=== PATIENT | female | born 1950 | race Caucasian/White ===

== ENCOUNTER 2016-06-13 10:32 | Inpatient (IN) | payer BC, OTHER ==
[2016-06-13] MEDS ORDERED: FUROSEMIDE 40 MG/4 ML INJECTABLE VIAL IVPB ONE (11:46)
[2016-06-13] MEDS ORDERED: FUROSEMIDE 40 MG/4 ML INJECTABLE VIAL ONE (12:47)
--- NOTE | 2016-06-13 13:00 | PDOC ---
History of Present Illness - General History Source: Patient Exam Limitations: No Limitations - History of Present Illness Initial Comments: 06/13/16 13:01 Patient is a 66 year old male with a significant past medical history of HTN, hypothyroidism and HLD who presents to the ED sent by PCP with worsening cough. Patient was seen at her PCPs on 06/08 for a sick visit with complaint of sinus congestion and nasal congestion and was prescribed a Z pack. Patient presented today at her PCPs office after completion of the Z pack with worsening cough. Patient reports slight SOB with exertion and worsening bilateral edema to the LE. As per PCP the patient O2 sat was 93% on RA. Patient reports 12 lb weight gain for 1 month. Patient had a venous doppler done on 06/11 negative for DVT. She denies fever or chills. PCP - Dr. Hernández <Loreto Monroy - Last Filed: 06/13/16 14:07> <Mario North - Last Filed: 06/13/16 14:34> - General Chief Complaint: Respiratory Stated Complaint: SOB, PCP SENT Time Seen by Provider: 06/13/16 11:46 Past History <Loreto Monroy - Last Filed: 06/13/16 14:07> - Past Medical History HTN: Yes Hypercholesterolemia: Yes Thyroid Disease: Yes - Psycho/Social/Smoking Cessation Hx Anxiety: No Suicidal Ideation: No Smoking History: Never smoked Substance Use Type: None <Mario North - Last Filed: 06/13/16 14:34> - Past Medical History Allergies/Adverse Reactions: Allergies Allergy/AdvReac Type Severity Reaction Status Date / Time No Known Allergies Allergy Verified 06/13/16 10:38 Review of Systems - Review of Systems Constitutional: No: Chills, Fever Respiratory: Yes: Cough, Shortness of Breath Cardiac (ROS): Yes: Chest Pain, Edema, Palpitations. No: Lightheadedness, Syncope ABD/GI: No: Nausea, Vomiting All Other Systems: Reviewed and Negative <Mario North - Last Filed: 06/13/16 14:34> *Physical Exam - Vital Signs Last Vital Signs Temp Pulse Resp BP Pulse Ox 97.6 F 77 20 157/84 95 06/13/16 10:33 06/13/16 10:33 06/13/16 10:33 06/13/16 10:33 06/13/16 10:33 - Physical Exam Comments: 06/13/16 13:02 GENERAL: The patient is awake, alert, and fully oriented, in no acute distress. HEAD: Normal with no signs of trauma. EYES: Pupils equal, round and reactive to light, extraocular movements intact, sclera anicteric, conjunctiva clear with no pallor. ENT: Ears normal, nares patent, oropharynx clear without exudates. Moist mucous membranes. NECK: Normal range of motion, supple without lymphadenopathy, JVD, or masses. LUNGS: +Bilateral crackles to mid lung field, no wheezing. Breath sounds equal. HEART: +HR irregular with occasional runs of tachycardia, normal S1 and S2 without murmur or rub. ABDOMEN: Soft/nontender/nondistended. BS wnl. No guarding or rebound. No palpable masses. No hepatosplenomegaly. EXTREMITIES: +non pitting edema bilaterally. Normal range of motion. No clubbing or cyanosis. No cords, erythema, or tenderness. NEUROLOGICAL: Cranial nerves II through XII grossly intact. Normal speech, normal gait. PSYCH: Normal mood, normal affect. SKIN: Warm, Dry, normal turgor, no rashes or lesions noted. <Loreto Monroy - Last Filed: 06/13/16 14:07> - Vital Signs Last Vital Signs Temp Pulse Resp BP Pulse Ox 97.6 F 77 20 157/84 95 06/13/16 10:33 06/13/16 10:33 06/13/16 10:33 06/13/16 10:33 06/13/16 10:33 <Mario North - Last Filed: 06/13/16 14:34> Heart Score/ECG Review #1 ECG reviewed & interpreted by me at: 13:14 General ECG Interpretation: Sinus Rhythm, Normal Rate (71), Normal Intervals ( QRS 72, QTC 371. no peaked t waves), No acute ischemic changes <Mario oNrth - Last Filed: 06/13/16 14:34> ED Treatment Course - LABORATORY CBC & Chemistry Diagram: 06/13/16 13:20 06/13/16 13:20 - RADIOLOGY Radiology Studies Ordered: 06/13/16 14:07 EXAM: RAD/CHEST PA LAT Chest: Chest pain. Possible infiltrate There are no prior studies for comparison. There is a scoliosis with convexity to the right, degenerative changes and wedging, weak inspiration, prominent heart, prominent knob and prominent srinath. There are congestive changes. There are bibasilar atelectatic and infiltrative findings with some right pleural fluid. Follow-up recommended. Reported By: Gene Patino MD 06/13/16 - Medications Given in the ED: ED Medications Discontinued Medications Generic Name Dose Route Start Last Admin Trade Name Freq PRN Reason Stop Dose Admin Furosemide 40 mg 06/13/16 11:46 06/13/16 13:00 Lasix Injection - IVPB 06/13/16 11:47 40 mg ONCE ONE Administration <Loreto Monroy - Last Filed: 06/13/16 14:07> - LABORATORY CBC & Chemistry Diagram: 06/13/16 13:20 06/13/16 13:20 - RADIOLOGY Radiology Studies Ordered: Category Date Time Status CHEST PA & LAT [RAD] Stat Radiology 06/13/16 11:46 Ordered <Mario North - Last Filed: 06/13/16 14:34> Medical Decision Making - Medical Decision Making 06/13/16 12:56 A portion of this note was documented by scribe services under my direction. I have reviewed the details of the note, within reason, and agree with the documentation with the following case summary and management plan written by me. 66-year-old female with history of hypertension and high cholesterol, sent from Dr. Hernández's office after seen by BETH Horan for further evaluation of progressive sob and edema. Was initially evaluated last week in the setting of URI symptoms of cough and chest congestion, she was treated with azithromycin and Lasix secondary to bilateral leg edema. After 5 days of the above medications, no improvements, Dopplers were performed and were negative for DVT , but the patient was sent to the ED for further evaluation of crackles in the lungs and O2 sat of 93%. No chest pain, but does have dyspnea on minimal exertion, intermittently feels palpitations particularly with exertion. Vital signs as noted. Exam as noted, intermittent irregular palpitations/tachycardia on exam, I lateral lung crackles, bilateral nonpitting edema 66-year-old female with evidence of volume overload on exam, there is a component of pulmonary edema. Question whether underlying cause is arrhythmia versus ischemia/ACS versus valvular. No DVTs on ultrasounds, no risk factors for PE. Seems less likely infectious overall, ? viral myocarditis. Labs, urinalysis ekg, cxr diuresis admission for cardiac eval/tele 06/13/16 14:10 CBC is within normal limits. Chemistries are notable for potassium of 5.8, acute renal insufficiency with creatinine of 2.8, troponin 0.08, and a chest x- ray consistent with congestive changes and pleural effusion. Patient was given Lasix previously. Will give Kayexalate, insulin, D50 for hyperkalemia. Will proceed with admission to telemetry. 06/13/16 14:33 Accepted for inpatient tele by Dr. Liu/BETH Wood <Mario North - Last Filed: 06/13/16 14:34> *DC/Admit/Observation/Transfer - Attestations Scribe Attestion: 06/13/16 13:06 Documentation prepared by GORDON Jarvis, acting as medical records analyst for Mario North MD. <Loreto Monroy - Last Filed: 06/13/16 14:07> - Discharge Dispostion Admit: Yes <Mario North - Last Filed: 06/13/16 14:34> Diagnosis at time of Disposition: Hyperkalemia, Acute renal insufficiency Pulmonary edema Qualifiers: Chronicity: acute Qualified Code(s): J81.0 - Acute pulmonary edema Arrhythmia Qualifiers: Arrhythmia type: unspecified cardiac arrhythmia Qualified Code(s): I49.9 - Cardiac arrhythmia, unspecified - Referrals Referrals: Carla Hernández MD [Primary Care Provider] -
[2016-06-13 13:40] LABS: INR 1.01 (0.82-1.09); PROTHROMBIN TIME (PATIENT) 11.1 SEC (9.98-11.88)
[2016-06-13 13:48] LABS: BASOPHIL 1.3 % (0-2.0); EOSINOPHIL 4.3 % (0-4.5); MCH 28.6 pg (25.7-33.7); MCHC 32.1 g/dl (32.0-36.0); MEAN CELL VOLUME 89.1 fl (80-96); MEAN PLT VOLUME 10.9 fl (7.5-11.1); NEUTROPHILS 70.3 % (42.8-82.8); PLATELET COUNT 252 K/MM3 (134-434); RDW 14.7 % (11.6-15.6)
[2016-06-13 13:52] LABS: ALBUMIN 3.7 g/dl (3.4-5.0); BILIRUBIN,TOTAL 0.5 mg/dL (0.2-1.0); CALCIUM 8.2 mg/dL (8.5-10.1); CREATININE 2.8 mg/dL (0.55-1.02); TOT PROT 6.4 g/dl (6.4-8.2)
[2016-06-13 13:55] LABS: TROPONIN I 0.08 ng/ml (0.00-0.05)
[2016-06-13] MEDS ORDERED: INSULIN REGULAR HUMAN 100 UNITS/ML *VIAL IVPUSH ONE ×2 (14:07→21:25)
[2016-06-13] MEDS ORDERED: SODIUM POLYSTYRENE SULFONATE 15 GM/60 ML BOTTLE PO ONE ×2 (14:07→21:24)
[2016-06-13] MEDS ORDERED: DEXTROSE 50%-WATER 50 ML VIAL IVPUSH ONE (14:07)
[2016-06-13] MEDS ORDERED: SODIUM POLYSTYRENE SULFONATE 15 GM/60 ML BOTTLE ONE (14:32)
[2016-06-13] MEDS ORDERED: DEXTROSE 50%-WATER 50 ML DISP.SYRIN ONE (14:32)
[2016-06-13] MEDS ORDERED: INSULIN REGULAR HUMAN 100 UNITS/ML *VIAL ONE (14:33)
[2016-06-13] MEDS ORDERED: ACETAMINOPHEN 325 MG TABLET (FP) PO PRN (15:42)
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
[2016-06-13 20:52] LABS: CALCIUM 8.4 mg/dL (8.5-10.1); CREATININE 2.8 mg/dL (0.55-1.02)
[2016-06-13 20:57] LABS: TROPONIN I 0.21 ng/ml (0.00-0.05)
[2016-06-13] MEDS ORDERED: DEXTROSE 50%-WATER 50 ML DISP.SYRIN IVPUSH ONE (21:26)
[2016-06-13] MEDS: HEPARIN NA (PORCINE) 5,000 UNITS/ML 1ML VIAL SQ SCH (22:04)
[2016-06-13] MEDS: ATORVASTATIN CA 10 MG TABLET (FP) PO SCH (22:04)
[2016-06-13] MEDS: DOCUSATE SODIUM 100 MG CAPSULE (FP) PO SCH (22:12)
[2016-06-14 00:40] VITALS: BMI 35.6
[2016-06-14 02:56] LABS: CALCIUM 8.3 mg/dL (8.5-10.1)
[2016-06-14] MEDS: HEPARIN NA (PORCINE) 5,000 UNITS/ML 1ML VIAL SQ SCH ×3 (05:33→21:25)
[2016-06-14] MEDS: DOCUSATE SODIUM 100 MG CAPSULE (FP) PO SCH ×3 (05:33→21:22)
[2016-06-14] MEDS: LEVOTHYROXINE NA 88 MCG TABLET (FP) PO SCH (06:33)
[2016-06-14 06:55] LABS: CALCIUM 7.9 mg/dL (8.5-10.1)
[2016-06-14 06:58] LABS: EOSINOPHIL 4.7 % (0-4.5); MCH 28.8 pg (25.7-33.7); MCHC 32.6 g/dl (32.0-36.0); MEAN CELL VOLUME 88.4 fl (80-96); MEAN PLT VOLUME 10.5 fl (7.5-11.1); NEUTROPHILS 61.5 % (42.8-82.8); PLATELET COUNT 179 K/MM3 (134-434); RDW 14.2 % (11.6-15.6); WHITE BLOOD COUNT 5.3 K/mm3 (4.0-10.0)
[2016-06-14 07:03] LABS: BILIRUBIN,TOTAL 0.4 mg/dL (0.2-1.0); CREATININE 2.9 mg/dL (0.55-1.02); PHOSPHOROUS 7.1 mg/dL (2.5-4.9); TOT PROT 5.2 g/dl (6.4-8.2); TROPONIN I 0.12 ng/ml (0.00-0.05)
[2016-06-14] MEDS ORDERED: PNEUMOC 13-VAL CONJ-DIP CRM/PF 0.5 ML DISP.SYRIN IM ONE (10:00)
[2016-06-14] MEDS ORDERED: FUROSEMIDE 40 MG/4 ML INJECTABLE VIAL IVPUSH SCH ×2 (10:00)
[2016-06-14] MEDS ORDERED: ASPIRIN 81 MG CHEWABLE TABLETS PO SCH (10:00)
[2016-06-14 10:21] LABS: URINE APPEARANCE CLOUDY; URINE BILIRUBIN NEGATIVE (NEGATIVE); URINE COLOR YELLOW; URINE GLUCOSE (UA) NEGATIVE (NEGATIVE); URINE KETONE NEGATIVE (NEGATIVE); URINE NITRITE NEGATIVE (NEGATIVE); URINE UROBILINOGEN NEGATIVE E.U./dl (0.2-1.0)
[2016-06-14 10:22] LABS: URINE BLOOD 3+ (NEGATIVE); URINE LEUK ESTERASE 3+ (NEGATIVE); URINE PROTEIN 3+ (NEGATIVE)
[2016-06-14] MEDS: RANITIDINE HCL 150 MG TABLET (FP) PO SCH (10:29)
[2016-06-14 10:31] LABS: URINE BACTERIA RARE /hpf (NONE SEEN); URINE HYALINE CAST 218 /lpf; URINE MUCUS FEW; URINE RBC 143 /hpf (0-3); URINE WBC 65 /hpf (3-5)
--- NOTE | 2016-06-14 10:45 | PN ---
Progress Note (short form) - Note Progress Note: Subjective: The patient was seen and examined at the bedside, she has just returned from CT scan. She reports feeling better but still has cough. Current Medications Generic Name Dose Route Start Last Admin Trade Name Freq PRN Reason Stop Dose Admin Acetaminophen 650 mg 06/13/16 15:42 Tylenol - PO Q6H PRN FEVER OR PAIN Aspirin 81 mg 06/14/16 10:00 06/14/16 10:29 Asa - PO 81 mg DAILY [place] Administration Atorvastatin Calcium 10 mg 06/13/16 22:00 06/13/16 22:04 Lipitor - PO 10 mg HS [place] Administration Docusate Sodium 100 mg 06/13/16 22:00 06/14/16 05:33 Colace - PO Not Given TID [place] Heparin Sodium (Porcine) 5,000 unit 06/13/16 22:00 06/14/16 05:33 Heparin - SQ 5,000 unit TID [place] Administration Levothyroxine Sodium 88 mcg 06/14/16 07:00 06/14/16 06:33 Synthroid - PO 88 mcg DAILY@0700 [place] Administration Nystatin/Triamcinolone Acetonide 1 applic 06/14/16 10:00 Mycolog Ii Cream - TP DAILY [place] Ondansetron HCl 4 mg 06/13/16 15:42 Zofran Injection IVPB Q6H PRN NAUSEA Ranitidine HCl 150 mg 06/14/16 10:00 06/14/16 10:29 Zantac - PO 150 mg DAILY [place] Administration Objective: Vital Signs Period Temp Pulse Resp BP Sys/Estrada Pulse Ox Last 24 Hr 97.9 F-98.1 F 73-78 20-22 131-154/77-82 97 Physical Exam: General: NAD, A&Ox3 Lungs: CTA bilaterally, +cough Heart: RRR, S1S2 Abd: Soft, non-tender, non-distended. Normoactive bowel sounds Ext: Warm, well-perfused, 2+ DP/PT bilaterally. 2-3+ pitting edema to b/l lower extremities Neuro: CN 2-12 intact CBCD WBC 5.3 K/mm3 (4.0-10.0) D 06/14/16 05:35 RBC 3.24 M/mm3 (3.60-5.2) L 06/14/16 05:35 Hgb 9.3 GM/dL (10.7-15.3) L D 06/14/16 05:35 Hct 28.7 % (32.4-45.2) L D 06/14/16 05:35 MCV 88.4 fl (80-96) 06/14/16 05:35 MCHC 32.6 g/dl (32.0-36.0) 06/14/16 05:35 RDW 14.2 % (11.6-15.6) 06/14/16 05:35 Plt Count 179 K/MM3 (134-434) D 06/14/16 05:35 MPV 10.5 fl (7.5-11.1) 06/14/16 05:35 CMP Sodium 146 mmol/L (136-145) H 06/14/16 05:35 Potassium 5.3 mmol/L (3.5-5.1) H 06/14/16 05:35 Chloride 114 mmol/L (98-107) H 06/14/16 05:35 Carbon Dioxide 21 mmol/L (21-32) 06/14/16 05:35 Anion Gap 11 (8-16) 06/14/16 05:35 BUN 79 mg/dL (7-18) H 06/14/16 05:35 Creatinine 2.9 mg/dL (0.55-1.02) H 06/14/16 05:35 Creat Clearance w eGFR 16.29 (>60) 06/14/16 05:35 Random Glucose 90 mg/dL (74-106) 06/14/16 05:35 Calcium 7.9 mg/dL (8.5-10.1) L 06/14/16 05:35 Total Bilirubin 0.4 mg/dL (0.2-1.0) 06/14/16 05:35 AST 16 U/L (15-37) D 06/14/16 05:35 ALT 31 U/L (12-78) D 06/14/16 05:35 Alkaline Phosphatase 79 U/L (45-117) D 06/14/16 05:35 Total Protein 5.2 g/dl (6.4-8.2) L 06/14/16 05:35 Albumin 3.0 g/dl (3.4-5.0) L 06/14/16 05:35 CARDIAC ENZYMES Creatine Kinase 111 IU/L (26-192) 06/14/16 05:35 Troponin I 0.12 ng/ml (0.00-0.05) H 06/14/16 05:35 Assessment: This is a 66 year old female with HTN, dyslipidemia, hypothyroidism who presented to the ED with worsening cough, dyspnea, and lower extremity edema with 2lb weight gain in one week. Plan: 1) : SUSI - Cr 1.09 on 02/28/16 - Cr here2.9 - Renal ultrasound with no hydronephrosis, right kidney appears borderline in size - UA with proteinurea - F/u urine electrolytes to calculate FeUrea (patient was on lasix at home) - Hold all nephrotoxic agents - F/u nephrology consult 2) Cardiology: Cough, dypnea, weight gain, lower extremity edema - Possible acute diastolic heart failure, f/u ECHO today to assess - Will hold Lasix given renal function - Continue to monitor volume status - Appreciate cardiology consult Dyslipidemia - Continue Atorvastatin 3) Pulmonary: Cough - Recently treated with Azithromycin for pneumonia - Chest CT with small bilateral pleural effusions, increased interstitial markings possibly related to congestive changes, mild bilateral platelike atelectasis. No significant consolidations or infiltrates. Mediastinal lymphadenopathy - Will need follow-up with pulmonary within 3 weeks for repeat chest CT to assess mediastinal adenopathy 4) ID: UTI - Start Ceftriaxone - F/u urine culture 5) F/E/N: - Monitor electrolytes - Hyperkalemia: trending down, continue to monitor (repeat this PM) 6) Prophylaxis: - Heparin 5,000u sq tid - OOB ambulating CODE STATUS: FULL CODE Visit type - Emergency Visit Emergency Visit: Yes ED Registration Date: 06/13/16 Care time: The patient presented to the Emergency Department on the above date and was hospitalized for further evaluation of their emergent condition. - New Patient This patient is new to me today: Yes Date on this admission: 06/14/16 - Critical Care Critical Care patient: No
--- NOTE | 2016-06-14 11:10 | CONSULT ---
Consult - text type - Consultation Consultation Note: Renal Consult for SUSI This is a 66 year old woman with PMhx of Hypertension (2 years), HLD, Hypotyrodism who presented with complaints of cough and LE swelling and found to have SUSI with BUN/Cr of 79/2.8 and K of 5.9. She reports that she never had any CKD or kidney dysfunction before. No Hx of stones or recurrent UTI. Pt is on ARB but has been on that for a while. Denies any NSIAD use. No recent Abx use. No contrast expousre. No flank pain, dysuria, hematuria or dark colored urine. No LAGUNA, Chest pain. + Non-productive cough. No Rash on skin. PMhx: as above Allergies: NKDA Family Hx: NC Social H: No T/D, social wine drinker ROS: as per HPI Home Meds: Home Medications Medication Instructions Recorded Aspirin [ASA -] 81 mg PO DAILY 06/13/16 Atorvastatin Calcium 10 mg PO HS 06/13/16 Furosemide [Lasix] 40 mg PO DAILY 06/13/16 Levothyroxine Sodium [Synthroid] 88 mcg PO DAILY 06/13/16 Losartan Potassium 100 mg PO DAILY 06/13/16 Nystatin/Triamcin 15 gm TP DAILY 06/13/16 [Nystatin-Triamcinolone Cream] Ranitidine [Zantac -] 150 mg PO DAILY 06/13/16 Vital Signs Temperature 98.1 F 06/14/16 06:00 Pulse Rate 73 06/14/16 06:00 Respiratory Rate 20 06/14/16 06:00 Blood Pressure 154/77 06/14/16 06:00 O2 Sat by Pulse Oximetry (%) 97 06/13/16 19:45 Intake & Output 06/11/16 06/12/16 06/13/16 06/14/16 23:59 23:59 23:59 23:59 Intake Total 120 Balance 120 Weight 188 lb 12.8 oz 188 lb 3.2 oz Gen: NAD, awake and alert HEENT: NC/AT, MMM, No JVD, Neck Supple CVS: RRR, No M/R Lungs: + rales left > right base Abd: soft NT/ND, Obese Ext: Trace to 1+ edema in LE, no clubbing or cyanosis : No bladder distension Neuro: AAOx3, no focal defects CBC, BMP 06/14/16 05:35 06/14/16 05:35 Laboratory Tests 06/14/16 06/14/16 06/14/16 05:35 05:35 09:00 MCV 88.4 Calcium 7.9 L Phosphorus 7.1 H Magnesium 3.0 H Albumin 3.0 L Urine pH 5.0 Ur Specific [place] 1.018 Urine Protein 3+ H Urine Blood 3+ H Urine RBC 143 Urine WBC 65 Ur Epithelial Cells Moderate Hyaline Casts 218 Current Medications Acetaminophen (Tylenol -) 650 mg PO Q6H PRN PRN Reason: FEVER OR PAIN Aspirin (Asa -) 81 mg PO DAILY [facility] Last Admin: 06/14/16 10:29 Dose: 81 mg Atorvastatin Calcium (Lipitor -) 10 mg PO HS [facility] Last Admin: 06/13/16 22:04 Dose: 10 mg Docusate Sodium (Colace -) 100 mg PO TID [facility] Last Admin: 06/14/16 05:33 Dose: Not Given Heparin Sodium (Porcine) (Heparin -) 5,000 unit SQ TID [facility] Last Admin: 06/14/16 05:33 Dose: 5,000 unit Ceftriaxone Sodium (Rocephin 1gm Ivpb (Pre-Docked)) 50 mls @ 100 mls/hr IVPB DAILY [facility] Levothyroxine Sodium (Synthroid -) 88 mcg PO DAILY@0700 [facility] Last Admin: 06/14/16 06:33 Dose: 88 mcg Nystatin/Triamcinolone Acetonide (Mycolog Ii Cream -) 1 applic TP DAILY [facility] Ondansetron HCl (Zofran Injection) 4 mg IVPB Q6H PRN PRN Reason: NAUSEA Ranitidine HCl (Zantac -) 150 mg PO DAILY [facility] Last Admin: 06/14/16 10:29 Dose: 150 mg A/P 66 year old woman with PMhx of Hypertension (2 years), HLD, Hypotyrodism who presented with complaints of cough and LE swelling and found to have SUSI with BUN/Cr of 79/2.8 and K of 5.9. #Acute Kidney Injury with signs of Volume Overload Etiology of SUSI unclear at this time Differential includes Normotensive ATN (ARB induced), Cardio-Renal syndrome, Intrinsic GN (FSGS, RPGN) Urine studies for proteinuria and FeUrea pending Renal US showed normal size kidneys w/o signs of obstruction no acute indication for dialysis at this time trend BUN/Cr Check GRAEME, ANCA, HIV, Hepatitis panel Hold ASA for now as pt may need renal biopsy #Hyperkalemia s/p kayexalate start low k diet hold ARB #Metabolic Acidosis start soidum bicarb 650mg once daily #Proteinuria UPCR penidng UA showed 3+ protein checking serologic studies #r/o CHF ECHO pending Cardiology following #Anemia Check iron profile Trend CBC #Suspected UTI/PNA on Ceftriaxone F/u cultures Thank you Will follow closely Jason Rice DO
[2016-06-14] MEDS ORDERED: CEFTRIAXONE 1 GM in DEXTROSE 5%-WATER - 50 ML IVPB SCH (11:15)
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
[2016-06-14] MEDS ORDERED: METOPROLOL SUCCINATE 25 MG TAB.SR.24H (FP) PO SCH (12:00)
[2016-06-14] MEDS: CEFTRIAXONE 50 ML IVPB SCH (12:22)
[2016-06-14] MEDS: NYSTATIN/TRIAMCINOLONE TOPICAL CREAM 15 GM TUBE TP SCH (12:22)
--- NOTE | 2016-06-14 16:14 | EKG ---
Test Reason : Blood Pressure : / mmHG Vent. Rate : 073 BPM Atrial Rate : 073 BPM P-R Int : 140 ms QRS Dur : 072 ms QT Int : 394 ms P-R-T Axes : 054 062 024 degrees QTc Int : 434 ms NORMAL SINUS RHYTHM NORMAL ECG NO PREVIOUS ECGS AVAILABLE Confirmed by WANDA ROONEY, PANTERA ([id number]) on 06/14/2016 4:14:32 PM Referred By: CHARLENE PRESCOTT Confirmed By:PANTERA MUÑOZ MD
--- NOTE | 2016-06-14 16:22 | EKG ---
Test Reason : Blood Pressure : / mmHG Vent. Rate : 125 BPM Atrial Rate : 125 BPM P-R Int : 166 ms QRS Dur : 072 ms QT Int : 302 ms P-R-T Axes : 083 069 031 degrees QTc Int : 435 ms SINUS TACHYCARDIA OTHERWISE NORMAL ECG NO PREVIOUS ECGS AVAILABLE Confirmed by PANTERA MUÑOZ MD ([id number]) on 06/14/2016 4:22:29 PM Referred By: Confirmed By:PANTERA MUÑOZ MD
[2016-06-14 16:45] LABS: COCKROFT - GAULT 23.613; CREATININE 3.2 mg/dL (0.55-1.02)
[2016-06-14] MEDS ORDERED: SODIUM POLYSTYRENE SULFONATE 15 GM/60 ML BOTTLE PO ONE ×2 (17:06→23:43)
[2016-06-14] MEDS ORDERED: hydrALAZINE HCL 50 MG TABLET (FP) PO ONE (21:00)
[2016-06-14] MEDS: ATORVASTATIN CA 10 MG TABLET (FP) PO SCH (21:25)
[2016-06-14 23:25] LABS: CALCIUM 8.1 mg/dL (8.5-10.1); COCKROFT - GAULT 24.378; CREATININE 3.1 mg/dL (0.55-1.02)
[2016-06-15 04:46] LABS: CALCIUM 7.7 mg/dL (8.5-10.1); COCKROFT - GAULT 24.378; CREATININE 3.1 mg/dL (0.55-1.02)
[2016-06-15] MEDS: DOCUSATE SODIUM 100 MG CAPSULE (FP) PO SCH ×3 (05:36→22:29)
[2016-06-15] MEDS: LEVOTHYROXINE NA 88 MCG TABLET (FP) PO SCH (06:02)
[2016-06-15] MEDS: HEPARIN NA (PORCINE) 5,000 UNITS/ML 1ML VIAL SQ SCH ×3 (06:02→22:29)
[2016-06-15 06:48] LABS: BASOPHIL 1.3 % (0-2.0); EOSINOPHIL 5.2 % (0-4.5); MCH 29.1 pg (25.7-33.7); MCHC 33.2 g/dl (32.0-36.0); MEAN CELL VOLUME 87.6 fl (80-96); MEAN PLT VOLUME 10.7 fl (7.5-11.1); NEUTROPHILS 65.2 % (42.8-82.8); PLATELET COUNT 207 K/MM3 (134-434); RDW 14.6 % (11.6-15.6); WHITE BLOOD COUNT 6.4 K/mm3 (4.0-10.0)
[2016-06-15 07:13] LABS: ALBUMIN 3.1 g/dl (3.4-5.0); BILIRUBIN,TOTAL 0.3 mg/dL (0.2-1.0); COCKROFT - GAULT 25.194; MAGNESIUM 2.9 mg/dL (1.8-2.4); PHOSPHOROUS 6.1 mg/dL (2.5-4.9); TOT PROT 5.3 g/dl (6.4-8.2)
[2016-06-15] MEDS ORDERED: guaiFENesin 200 MG/10 ML 10 ML UNIT-DOSE CUPS PO ONE (08:44)
--- NOTE | 2016-06-15 09:12 | PN ---
[id number] bedside, she reports feeling better today, but still complaints of cough. Current Medications Generic Name Dose Route Start Last Admin Trade Name Freq PRN Reason Stop Dose Admin Acetaminophen 650 mg 06/13/16 15:42 Tylenol - PO Q6H PRN FEVER OR PAIN Atorvastatin Calcium 10 mg 06/13/16 22:00 06/14/16 21:25 Lipitor - PO 10 mg HS [place] Administration Docusate Sodium 100 mg 06/13/16 22:00 06/15/16 05:36 Colace - PO Not Given TID [place] Heparin Sodium (Porcine) 5,000 unit 06/13/16 22:00 06/15/16 06:02 Heparin - SQ 5,000 unit TID [place] Administration Hydralazine HCl 50 mg 06/15/16 10:00 Apresoline - PO BID [place] Ceftriaxone Sodium 50 mls @ 100 mls/hr 06/14/16 11:15 06/14/16 12:22 Rocephin 1gm Ivpb (Pre-Docked) IVPB 100 mls/hr DAILY [place] Administration Levothyroxine Sodium 88 mcg 06/14/16 07:00 06/15/16 06:02 Synthroid - PO 88 mcg DAILY@0700 [place] Administration Nystatin/Triamcinolone Acetonide 1 applic 06/14/16 10:00 06/14/16 12:22 Mycolog Ii Cream - TP Not Given DAILY [place] Ondansetron HCl 4 mg 06/13/16 15:42 Zofran Injection IVPB Q6H PRN NAUSEA Ranitidine HCl 150 mg 06/14/16 10:00 06/14/16 10:29 Zantac - PO 150 mg DAILY [place] Administration Objective: Vital Signs Period Temp Pulse Resp BP Sys/Estrada Pulse Ox Last 24 Hr 97.8 F-99.1 F 60-80 18-20 157-170/60-91 97-97 Physical Exam: General: NAD, A&Ox3 Lungs: CTA bilaterally, +cough Heart: RRR, S1S2 Abd: Soft, non-tender, non-distended. Normoactive bowel sounds Ext: Warm, well-perfused, 2+ DP/PT bilaterally. 2-3+ pitting edema to b/l lower extremities Neuro: CN 2-12 intact CBCD WBC 6.4 K/mm3 (4.0-10.0) 06/15/16 05:35 RBC 3.30 M/mm3 (3.60-5.2) L 06/15/16 05:35 Hgb 9.6 GM/dL (10.7-15.3) L 06/15/16 05:35 Hct 28.9 % (32.4-45.2) L 06/15/16 05:35 MCV 87.6 fl (80-96) 06/15/16 05:35 MCHC 33.2 g/dl (32.0-36.0) 06/15/16 05:35 RDW 14.6 % (11.6-15.6) 06/15/16 05:35 Plt Count 207 K/MM3 (134-434) 06/15/16 05:35 MPV 10.7 fl (7.5-11.1) 06/15/16 05:35 CMP Sodium 146 mmol/L (136-145) H 06/15/16 05:35 Potassium 4.9 mmol/L (3.5-5.1) 06/15/16 05:35 Chloride 115 mmol/L (98-107) H 06/15/16 05:35 Carbon Dioxide 21 mmol/L (21-32) 06/15/16 05:35 Anion Gap 10 (8-16) 06/15/16 05:35 BUN 78 mg/dL (7-18) H 06/15/16 05:35 Creatinine 3.0 mg/dL (0.55-1.02) H 06/15/16 05:35 Creat Clearance w eGFR 15.66 (>60) 06/15/16 05:35 Random Glucose 90 mg/dL (74-106) 06/15/16 05:35 Calcium 8.0 mg/dL (8.5-10.1) L 06/15/16 05:35 Total Bilirubin 0.3 mg/dL (0.2-1.0) D 06/15/16 05:35 AST 15 U/L (15-37) 06/15/16 05:35 ALT 32 U/L (12-78) 06/15/16 05:35 Alkaline Phosphatase 76 U/L (45-117) 06/15/16 05:35 Total Protein 5.3 g/dl (6.4-8.2) L 06/15/16 05:35 Albumin 3.1 g/dl (3.4-5.0) L 06/15/16 05:35 CARDIAC ENZYMES Creatine Kinase 111 IU/L (26-192) 06/14/16 05:35 Troponin I 0.12 ng/ml (0.00-0.05) H 06/14/16 05:35 Assessment: This is a 66 year old female with HTN, dyslipidemia, hypothyroidism who presented to the ED with worsening cough, dyspnea, and lower extremity edema with 2lb weight gain in one week. Plan: 1) : SUSI - Cr 1.09 on 02/28/16 - Cr remains elevated, 3 today - Renal ultrasound with no hydronephrosis, right kidney appears borderline in size - UA with proteinurea - FeUrea (patient was on Lasix at home) 5.5, indicating pre-renal - Hold all nephrotoxic agents - F/u GRAEME, anca, HIV, hepatitis panel - Holding ASA as patient may need renal biopsy (last dose 06/14) - Appreciate nephrology consult 2) Cardiology: Cough, dypnea, weight gain, lower extremity edema - ECHO with normal LV size, function, and thickness, right ventricle is normal in size and function, mild MR, trace TR - Continue to hold Lasix given renal function - Continue to monitor volume status - Appreciate cardiology consult Dyslipidemia - Continue Atorvastatin 3) Pulmonary: Cough - Recently treated with Azithromycin for pneumonia - Chest CT with small bilateral pleural effusions, increased interstitial markings possibly related to congestive changes, mild bilateral platelike atelectasis. No significant consolidations or infiltrates. Mediastinal lymphadenopathy - Will need follow-up with pulmonary within 3 weeks for repeat chest CT to assess mediastinal adenopathy 4) ID: UTI - Start Ceftriaxone (given prior to urine culture drawn) 5) F/E/N: - Monitor electrolytes - Hyperkalemia: resolved, continue to monitor, received kayexelate yesterday 6) Prophylaxis: - Heparin 5,000u sq tid - OOB ambulating CODE STATUS: FULL CODE Visit type - Emergency Visit Emergency Visit: Yes ED Registration Date: 06/13/16 Care time: The patient presented to the Emergency Department on the above date and was hospitalized for further evaluation of their emergent condition. - New Patient This patient is new to me today: No - Critical Care Critical Care patient: No
[2016-06-15] MEDS: RANITIDINE HCL 150 MG TABLET (FP) PO SCH (10:37)
[2016-06-15] MEDS: hydrALAZINE HCL 50 MG TABLET (FP) PO SCH ×2 (10:37→22:29)
[2016-06-15] MEDS: CEFTRIAXONE 50 ML IVPB SCH (10:37)
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
[2016-06-15] MEDS: NYSTATIN/TRIAMCINOLONE TOPICAL CREAM 15 GM TUBE TP SCH (13:19)
--- NOTE | 2016-06-15 14:45 | PN ---
Progress Note (short form) - Note Progress Note: Renal Follow up for SUSI Pt seen and examined at the bedside has no acute complaints has non productive cough and sob leg swelling remains the same no N/V/D Vital Signs Temperature 98.1 F 06/15/16 10:00 Pulse Rate 68 06/15/16 10:00 Respiratory Rate 20 06/15/16 10:00 Blood Pressure 158/71 06/15/16 10:00 O2 Sat by Pulse Oximetry (%) 97 06/15/16 10:00 Intake & Output 06/12/16 06/13/16 06/14/16 06/15/16 23:59 23:59 23:59 23:59 Intake Total 120 750 370 Balance 120 750 370 Weight 188 lb 12.8 oz 188 lb 3.2 oz Gen: NAD CVS: RRR, No M/R Lungs: slight rales at lung bases Abd: soft NT/ND, Obese Ext: Trace to 1+ edema in LE, no clubbing or cyanosis CBC, BMP 06/15/16 05:35 06/15/16 05:35 Current Medications Acetaminophen (Tylenol -) 650 mg PO Q6H PRN PRN Reason: FEVER OR PAIN Atorvastatin Calcium (Lipitor -) 10 mg PO HS [facility] Last Admin: 06/14/16 21:25 Dose: 10 mg Docusate Sodium (Colace -) 100 mg PO TID [facility] Last Admin: 06/15/16 13:19 Dose: Not Given Heparin Sodium (Porcine) (Heparin -) 5,000 unit SQ TID [facility] Last Admin: 06/15/16 13:21 Dose: 5,000 unit Hydralazine HCl (Apresoline -) 50 mg PO BID [facility] Last Admin: 06/15/16 10:37 Dose: 50 mg Ceftriaxone Sodium (Rocephin 1gm Ivpb (Pre-Docked)) 50 mls @ 100 mls/hr IVPB DAILY [facility] Last Admin: 06/15/16 10:37 Dose: 100 mls/hr Levothyroxine Sodium (Synthroid -) 88 mcg PO DAILY@0700 [facility] Last Admin: 06/15/16 06:02 Dose: 88 mcg Nystatin/Triamcinolone Acetonide (Mycolog Ii Cream -) 1 applic TP DAILY [facility] Last Admin: 06/15/16 13:19 Dose: 1 applic Ondansetron HCl (Zofran Injection) 4 mg IVPB Q6H PRN PRN Reason: NAUSEA Ranitidine HCl (Zantac -) 150 mg PO DAILY [place] Last Admin: 06/15/16 10:37 Dose: 150 mg A/P 66 year old woman with PMhx of Hypertension (2 years), HLD, Hypotyrodism who presented with complaints of cough and LE swelling and found to have SUSI with BUN/Cr of 79/2.8 and K of 5.9. #Acute Kidney Injury both FeNa and FeUrea indicate a pre-renal state but with her clinical presenation must r/o GN s/p Lasix yesterday w/o improvement in renal function ECHO shoed normal heart function so will hold off further diuresis at this time Pt has less then 1g of protein per day as per UPCR UA consistently shows blood but it is also positive for LE and WBC that could be from UTI Serologic studies sent out Added C3, C4, CH50, ASO titers as per reports having a sore throat a few weeks ago no indication for dialysis at this time Dose all med for Cr Cl less then 15 Will plan for tentative renal biopsy next week Jason Rice DO
[2016-06-15] MEDS: ATORVASTATIN CA 10 MG TABLET (FP) PO SCH (22:29)
[2016-06-16] MEDS ORDERED: guaiFENesin 200 MG/10 ML 10 ML UNIT-DOSE CUPS PO ONE (00:45)
[2016-06-16] MEDS: DOCUSATE SODIUM 100 MG CAPSULE (FP) PO SCH ×3 (06:03→21:10)
[2016-06-16 06:06] LABS: SERUM IRON 62 ug/dL (27-139); TOTAL IRON BINDING CAPACITY 322 ug/dL (250-450); UIBC 260 ug/dL (118-369)
[2016-06-16] MEDS: HEPARIN NA (PORCINE) 5,000 UNITS/ML 1ML VIAL SQ SCH ×3 (06:09→21:23)
[2016-06-16] MEDS: LEVOTHYROXINE NA 88 MCG TABLET (FP) PO SCH (06:09)
[2016-06-16 07:55] LABS: BASOPHIL 1.3 % (0-2.0); EOSINOPHIL 3.4 % (0-4.5); MCH 28.8 pg (25.7-33.7); MCHC 32.6 g/dl (32.0-36.0); MEAN CELL VOLUME 88.3 fl (80-96); MEAN PLT VOLUME 10.6 fl (7.5-11.1); NEUTROPHILS 73.1 % (42.8-82.8); PLATELET COUNT 221 K/MM3 (134-434); RDW 14.5 % (11.6-15.6)
[2016-06-16 08:18] LABS: CALCIUM 7.9 mg/dL (8.5-10.1); COCKROFT - GAULT 22.797; CREATININE 3.3 mg/dL (0.55-1.02); MAGNESIUM 2.9 mg/dL (1.8-2.4)
[2016-06-16] MEDS ORDERED: PT OWN MED DRAWER 7, Y5N ONE (10:16)
[2016-06-16] MEDS: hydrALAZINE HCL 50 MG TABLET (FP) PO SCH ×2 (10:21→21:10)
[2016-06-16] MEDS: CEFTRIAXONE 50 ML IVPB SCH (10:21)
[2016-06-16] MEDS: SODIUM BICARBONATE 650 MG TABLET PO SCH (10:21)
[2016-06-16] MEDS: RANITIDINE HCL 150 MG TABLET (FP) PO SCH (10:21)
--- NOTE | 2016-06-16 10:39 | PN ---
Progress Note (short form) - Note Progress Note: Renal Follow up for SUSI Pt seen and examined at the bedside reports having persistent cough with minimal sputum production denies any CP had Nausea an vomiting x 1 this am reports good urine output Vital Signs Temperature 97.8 F 06/16/16 06:00 Pulse Rate 85 06/16/16 06:00 Respiratory Rate 20 06/16/16 06:00 Blood Pressure 149/60 06/16/16 06:00 O2 Sat by Pulse Oximetry (%) 94 L 06/15/16 21:00 Intake & Output 06/13/16 06/14/16 06/15/16 06/16/16 23:59 23:59 23:59 23:59 Intake Total 245 774 8441 200 Balance 411 005 7377 200 Weight 188 lb 12.8 oz 188 lb 3.2 oz 187 lb 6 oz Gen: NAD CVS: RRR, No M/R Lungs: slight rales at lung bases Abd: soft NT/ND, Obese Ext: Trace to 1+ edema in LE, no clubbing or cyanosis CBC, BMP 06/16/16 06:30 06/16/16 06:30 Current Medications Acetaminophen (Tylenol -) 650 mg PO Q6H PRN PRN Reason: FEVER OR PAIN Atorvastatin Calcium (Lipitor -) 10 mg PO HS [facility] Last Admin: 06/15/16 22:29 Dose: 10 mg Calcium Acetate (Phoslo -) 667 mg PO TIDCM [facility] Docusate Sodium (Colace -) 100 mg PO TID [facility] Last Admin: 06/16/16 06:03 Dose: Not Given Heparin Sodium (Porcine) (Heparin -) 5,000 unit SQ TID [facility] Last Admin: 06/16/16 06:09 Dose: 5,000 unit Hydralazine HCl (Apresoline -) 50 mg PO BID [facility] Last Admin: 06/16/16 10:21 Dose: 50 mg Ceftriaxone Sodium (Rocephin 1gm Ivpb (Pre-Docked)) 50 mls @ 100 mls/hr IVPB DAILY [facility] Last Admin: 06/16/16 10:21 Dose: 100 mls/hr Levothyroxine Sodium (Synthroid -) 88 mcg PO DAILY@0700 [facility] Last Admin: 06/16/16 06:09 Dose: 88 mcg Nystatin/Triamcinolone Acetonide (Mycolog Ii Cream -) 1 applic TP DAILY [facility] Last Admin: 06/15/16 13:19 Dose: 1 applic Ondansetron HCl (Zofran Injection) 4 mg IVPB Q6H PRN PRN Reason: NAUSEA Ranitidine HCl (Zantac -) 150 mg PO DAILY [facility] Last Admin: 06/16/16 10:21 Dose: 150 mg Sodium Bicarbonate (Sodium Bicarbonate -) 650 mg PO DAILY [facility] Last Admin: 06/16/16 10:21 Dose: 650 mg A/P 66 year old woman with PMhx of Hypertension (2 years), HLD, Hypotyrodism who presented with complaints of cough and LE swelling and found to have SUSI with BUN/Cr of 79/2.8 and K of 5.9. #Acute Kidney Injury Renal function w/o improvement Tentative Biopsy set for Saturday Check CXR today to r/o worsening effusions/congestion if no signficnat fluid can try tiral of IVF Serologic work up pended re-ordered C4, C4, CH50, ASO as it appears it was not drawn yesterday Trend BUN/Cr dose all meds for Cr Cl less then 15 start sodium bicarb and Phoslo TID with meals Jason Rice DO
[2016-06-16] MEDS: NYSTATIN/TRIAMCINOLONE TOPICAL CREAM 15 GM TUBE TP SCH (12:32)
[2016-06-16] MEDS: CALCIUM ACETATE 667 MG CAPSULE (FP) PO SCH ×2 (12:35→18:12)
--- NOTE | 2016-06-16 12:45 | PN ---
Physical Exam: SUBJECTIVE: Patient seen and examined. She is feeling nauseated, has no appetite. She cough so hard this AM she vomited. OBJECTIVE: Vital Signs Period Temp Pulse Resp BP Sys/Estrada Pulse Ox Last 24 Hr 97.6 F-98.1 F 84-88 18-20 102-168/58-77 94-94 PE Neuro: alert, awake, cn 2-12intact Pulm: CTAB, + productive harsh cough CV: s1 s2 rrr no mrg Abd: s nt nd + bs Ext: non pitting edema, warm, L ankle lesion CBCD WBC 8.0 K/mm3 (4.0-10.0) 06/16/16 06:30 RBC 3.51 M/mm3 (3.60-5.2) L 06/16/16 06:30 Hgb 10.1 GM/dL (10.7-15.3) L 06/16/16 06:30 Hct 31.0 % (32.4-45.2) L 06/16/16 06:30 MCV 88.3 fl (80-96) 06/16/16 06:30 MCHC 32.6 g/dl (32.0-36.0) 06/16/16 06:30 RDW 14.5 % (11.6-15.6) 06/16/16 06:30 Plt Count 221 K/MM3 (134-434) 06/16/16 06:30 MPV 10.6 fl (7.5-11.1) 06/16/16 06:30 CMP Sodium 144 mmol/L (136-145) 06/16/16 06:30 Potassium 4.8 mmol/L (3.5-5.1) 06/16/16 06:30 Chloride 112 mmol/L (98-107) H 06/16/16 06:30 Carbon Dioxide 20 mmol/L (21-32) L 06/16/16 06:30 Anion Gap 12 (8-16) 06/16/16 06:30 BUN 78 mg/dL (7-18) H 06/16/16 06:30 Creatinine 3.3 mg/dL (0.55-1.02) H 06/16/16 06:30 Creat Clearance w eGFR 15.66 (>60) 06/15/16 05:35 Calcium 7.9 mg/dL (8.5-10.1) L 06/16/16 06:30 Total Bilirubin 0.3 mg/dL (0.2-1.0) D 06/15/16 05:35 AST 15 U/L (15-37) 06/15/16 05:35 ALT 32 U/L (12-78) 06/15/16 05:35 Alkaline Phosphatase 76 U/L (45-117) 06/15/16 05:35 Total Protein 5.3 g/dl (6.4-8.2) L 06/15/16 05:35 Albumin 3.1 g/dl (3.4-5.0) L 06/15/16 05:35 06/14/16 06/14/16 16:00 16:00 GRAEME Screen Pending c-ANCA Pending Proteinase 3 (PR3) Pending p-ANCA Pending Atypical p-ANCA Pending Myeloperoxidase Ab Pending RPR Titer Nonreactive Hepatitis A IgM Ab Negative Hep Bs Antigen Negative Hep B Core IgM Ab Negative Hepatitis C Ab (EIA) 0.1 06/16/16 06:30 Phosphorus 6.0 H Magnesium 2.9 H Active Medications Generic Name Dose Route Start Last Admin Trade Name Freq PRN Reason Stop Dose Admin Acetaminophen 650 mg 06/13/16 15:42 Tylenol - PO Q6H PRN FEVER OR PAIN Atorvastatin Calcium 10 mg 06/13/16 22:00 06/15/16 22:29 Lipitor - PO 10 mg HS [place] Administration Calcium Acetate 667 mg 06/16/16 12:00 06/16/16 12:35 Phoslo - PO 667 mg TIDCM [place] Administration Docusate Sodium 100 mg 06/13/16 22:00 06/16/16 06:03 Colace - PO Not Given TID [place] Guaifenesin 10 ml 06/16/16 12:38 Robitussin - PO Q6H PRN COUGH Heparin Sodium (Porcine) 5,000 unit 06/13/16 22:00 06/16/16 06:09 Heparin - SQ 5,000 unit TID [place] Administration Hydralazine HCl 50 mg 06/15/16 10:00 06/16/16 10:21 Apresoline - PO 50 mg BID [place] Administration Ceftriaxone Sodium 50 mls @ 100 mls/hr 06/14/16 11:15 06/16/16 10:21 Rocephin 1gm Ivpb (Pre-Docked) IVPB 100 mls/hr DAILY [place] Administration Levothyroxine Sodium 88 mcg 06/14/16 07:00 06/16/16 06:09 Synthroid - PO 88 mcg DAILY@0700 [place] Administration Nystatin/Triamcinolone Acetonide 1 applic 06/14/16 10:00 06/16/16 12:32 Mycolog Ii Cream - TP Not Given DAILY [place] Ondansetron HCl 4 mg 06/13/16 15:42 Zofran Injection IVPB Q6H PRN NAUSEA Ranitidine HCl 150 mg 06/14/16 10:00 06/16/16 10:21 Zantac - PO 150 mg DAILY [place] Administration Sodium Bicarbonate 650 mg 06/16/16 10:00 06/16/16 10:21 Sodium Bicarbonate - PO 650 mg DAILY [place] Administration Imaging: - ECHO with normal LV size, function, and thickness, right ventricle is normal in size and function, mild MR, trace TR - Chest CT with small bilateral pleural effusions, increased interstitial markings possibly related to congestive changes, mild bilateral platelike atelectasis. No significant consolidations or infiltrates. Mediastinal lymphadenopathy Assessment: 66 year old female with HTN, dyslipidemia, hypothyroidism admitted with worsening cough, dyspnea, and lower extremity edema with 2lb weight gain in one week and SUSI and hyperkalemia, cr in 02/28/16 1.09 Plan: 1. SUSI - Renal fxn worsening - Renal biopsy for next Saturday (ASA last dose 06/14) - F/u GRAEME, anca, HIV - Start sodium bicarb daily - Start Phoslo TID with meals - Dose meds for cr cl <15 2. Proteinurea - C3 C4 CH50 - Renal work up initiated 3. Weight gain, lower extremity edema - Continue to hold Lasix given renal function 4. Dyslipidemia - Continue Atorvastatin 5. Cough - F/u CXR - Robitussin q6 prn - Recently treated with Azithromycin for pneumonia - Will need follow-up with pulmonary within 3 weeks for repeat chest CT to assess mediastinal adenopathy 6. UTI - Ceftriaxone (day 2) 7. Hypothyroid - Continue Synthroid 8. HTN - Continue Hydralazine 50mg BID - Intolerable to BB d/t bradycardia - ARB on hold 2/2 SUSI Visit type - Emergency Visit Emergency Visit: Yes ED Registration Date: 06/13/16 Care time: The patient presented to the Emergency Department on the above date and was hospitalized for further evaluation of their emergent condition. - New Patient This patient is new to me today: Yes Date on this admission: 06/16/16 - Critical Care Critical Care patient: No
[2016-06-16] MEDS: ONDANSETRON 4 MG/2 ML VIAL IVPB PRN ×2 (12:51→21:11)
[2016-06-16] MEDS: guaiFENesin 200 MG/10 ML 10 ML UNIT-DOSE CUPS PO PRN ×2 (13:06→21:11)
--- NOTE | 2016-06-16 16:59 | PN ---
Progress Note, Physician History of Present Illness: Had heart "racing overnight" No other complaints Tele with HR to 128 (?Afib vs Atch) - Current Medication List Current Medications: Active Medications Acetaminophen (Tylenol -) 650 mg PO Q6H PRN PRN Reason: FEVER OR PAIN Atorvastatin Calcium (Lipitor -) 10 mg PO HS [facility] Last Admin: 06/15/16 22:29 Dose: 10 mg Calcium Acetate (Phoslo -) 667 mg PO TIDCM [facility] Last Admin: 06/16/16 12:35 Dose: 667 mg Docusate Sodium (Colace -) 100 mg PO TID [facility] Last Admin: 06/16/16 14:36 Dose: 100 mg Guaifenesin (Robitussin -) 10 ml PO Q6H PRN PRN Reason: COUGH Last Admin: 06/16/16 13:06 Dose: 10 ml Heparin Sodium (Porcine) (Heparin -) 5,000 unit SQ TID [facility] Last Admin: 06/16/16 14:36 Dose: 5,000 unit Hydralazine HCl (Apresoline -) 50 mg PO BID [facility] Last Admin: 06/16/16 10:21 Dose: 50 mg Ceftriaxone Sodium (Rocephin 1gm Ivpb (Pre-Docked)) 50 mls @ 100 mls/hr IVPB DAILY [facility] Last Admin: 06/16/16 10:21 Dose: 100 mls/hr Levothyroxine Sodium (Synthroid -) 88 mcg PO DAILY@0700 [facility] Last Admin: 06/16/16 06:09 Dose: 88 mcg Nystatin/Triamcinolone Acetonide (Mycolog Ii Cream -) 1 applic TP DAILY [facility] Last Admin: 06/16/16 12:32 Dose: Not Given Ondansetron HCl (Zofran Injection) 4 mg IVPB Q6H PRN PRN Reason: NAUSEA Last Admin: 06/16/16 12:51 Dose: 4 mg Ranitidine HCl (Zantac -) 150 mg PO DAILY [facility] Last Admin: 06/16/16 10:21 Dose: 150 mg Sodium Bicarbonate (Sodium Bicarbonate -) 650 mg PO DAILY [facility] Last Admin: 06/16/16 10:21 Dose: 650 mg - Objective Vital Signs: Vital Signs Temperature 97.9 F 06/16/16 14:46 Pulse Rate 101 H 06/16/16 14:46 Respiratory Rate 20 06/16/16 14:46 Blood Pressure 126/57 06/16/16 14:46 O2 Sat by Pulse Oximetry (%) 94 L 06/16/16 10:00 Constitutional: Yes: No Distress, Calm Eyes: Yes: WNL HENT: Yes: WNL Neck: Yes: WNL Cardiovascular: Yes: Regular Rate and Rhythm, Murmur (Coarse breacth sounds) Respiratory: Yes: Other (Coarse breath sounds) Gastrointestinal: Yes: WNL Extremities: Yes: WNL Edema: Yes Edema: LLE: 1+, RLE: 1+ Labs: CBC, BMP 06/16/16 06:30 06/16/16 06:30 INR, PTT INR 1.01 (0.82-1.09) 06/13/16 13:20 Assessment/Plan tele: echo 06/2016: nl lv/rv, mild mr a/p: 66 year old who recently [place] home [place] with h/o HTN, HL, hypothyroidism presents with cough, LE edema. cough/low o2 sat - CT chest without significant chf and lasix has worsened cr initially so holding diuretics for now - echo unremarkable here - ce's unremarkable x3 - likely vol overload from SUSI, cont to hold diuretics - cont telemetry monitoring. HTN - holding home losartan due to susi/hyperkalemia. Tried bb but pt had leander and bp still high so stopped bb and started hydralazine 50 bid, titrate prn. HLD - con't statin SUSI - poor uop response to diuretic. - likely underlying kidney disease as etiology, renal following
[2016-06-16] MEDS: ATORVASTATIN CA 10 MG TABLET (FP) PO SCH (21:10)
[2016-06-17] MEDS ORDERED: PT OWN MED DRAWER 7, Y5N ONE ×2 (05:50→21:23)
[2016-06-17] MEDS: DOCUSATE SODIUM 100 MG CAPSULE (FP) PO SCH ×3 (06:15→21:25)
[2016-06-17] MEDS: HEPARIN NA (PORCINE) 5,000 UNITS/ML 1ML VIAL SQ SCH ×3 (06:15→21:24)
[2016-06-17] MEDS: LEVOTHYROXINE NA 88 MCG TABLET (FP) PO SCH (06:15)
[2016-06-17 07:42] LABS: BASOPHIL 1.2 % (0-2.0); EOSINOPHIL 3.6 % (0-4.5); MCH 28.6 pg (25.7-33.7); MCHC 32.1 g/dl (32.0-36.0); MEAN CELL VOLUME 89.1 fl (80-96); MEAN PLT VOLUME 10.7 fl (7.5-11.1); NEUTROPHILS 71.9 % (42.8-82.8); PLATELET COUNT 208 K/MM3 (134-434); RDW 14.7 % (11.6-15.6); WHITE BLOOD COUNT 7.6 K/mm3 (4.0-10.0)
[2016-06-17 08:12] LABS: CALCIUM 8.2 mg/dL (8.5-10.1); MAGNESIUM 2.8 mg/dL (1.8-2.4)
[2016-06-17 08:13] LABS: COCKROFT - GAULT 17.9095; CREATININE 4.2 mg/dL (0.55-1.02)
[2016-06-17] MEDS: CEFTRIAXONE 50 ML IVPB SCH (09:28)
[2016-06-17] MEDS: SODIUM BICARBONATE 650 MG TABLET PO SCH (09:29)
[2016-06-17] MEDS: CALCIUM ACETATE 667 MG CAPSULE (FP) PO SCH ×3 (09:29→18:00)
[2016-06-17] MEDS: NYSTATIN/TRIAMCINOLONE TOPICAL CREAM 15 GM TUBE TP SCH (09:29)
[2016-06-17] MEDS: RANITIDINE HCL 150 MG TABLET (FP) PO SCH (09:30)
[2016-06-17] MEDS: hydrALAZINE HCL 50 MG TABLET (FP) PO SCH ×2 (09:30→21:25)
--- NOTE | 2016-06-17 10:05 | PN ---
Progress Note, Physician History of Present Illness: No complaints past 24 hours Tele reviewed and shows atrial tach to 117 at 08:49 this AM (06/17/2016). I have printed this and placed in the chart She was asymtomatic with this episode but has been feeling occasional palpitations during her hospitalization. - Current Medication List Current Medications: Active Medications Acetaminophen (Tylenol -) 650 mg PO Q6H PRN PRN Reason: FEVER OR PAIN Atorvastatin Calcium (Lipitor -) 10 mg PO HS [facility] Last Admin: 06/16/16 21:10 Dose: 10 mg Calcium Acetate (Phoslo -) 667 mg PO TIDCM [facility] Last Admin: 06/17/16 09:29 Dose: 667 mg Docusate Sodium (Colace -) 100 mg PO TID [facility] Last Admin: 06/17/16 06:15 Dose: 100 mg Guaifenesin (Robitussin -) 10 ml PO Q6H PRN PRN Reason: COUGH Last Admin: 06/16/16 21:11 Dose: 10 ml Heparin Sodium (Porcine) (Heparin -) 5,000 unit SQ TID [facility] Last Admin: 06/17/16 06:15 Dose: 5,000 unit Hydralazine HCl (Apresoline -) 50 mg PO BID [facility] Last Admin: 06/17/16 09:30 Dose: 50 mg Ceftriaxone Sodium (Rocephin 1gm Ivpb (Pre-Docked)) 50 mls @ 100 mls/hr IVPB DAILY [facility] Last Admin: 06/17/16 09:28 Dose: 100 mls/hr Levothyroxine Sodium (Synthroid -) 88 mcg PO DAILY@0700 [facility] Last Admin: 06/17/16 06:15 Dose: 88 mcg Nystatin/Triamcinolone Acetonide (Mycolog Ii Cream -) 1 applic TP DAILY [facility] Last Admin: 06/17/16 09:29 Dose: 1 applic Ondansetron HCl (Zofran Injection) 4 mg IVPB Q6H PRN PRN Reason: NAUSEA Last Admin: 06/16/16 21:11 Dose: 4 mg Ranitidine HCl (Zantac -) 150 mg PO DAILY [facility] Last Admin: 06/17/16 09:30 Dose: 150 mg Sodium Bicarbonate (Sodium Bicarbonate -) 650 mg PO DAILY [facility] Last Admin: 06/17/16 09:29 Dose: 650 mg - Objective Vital Signs: Vital Signs Temperature 98.2 F 06/17/16 09:58 Pulse Rate 82 06/17/16 09:58 Respiratory Rate 19 06/17/16 09:58 Blood Pressure 147/65 06/17/16 09:58 O2 Sat by Pulse Oximetry (%) 94 L 06/16/16 22:00 Constitutional: Yes: No Distress, Calm Eyes: Yes: WNL HENT: Yes: WNL Neck: Yes: WNL Cardiovascular: Yes: Regular Rate and Rhythm Respiratory: Yes: WNL Gastrointestinal: Yes: Normal Bowel Sounds Musculoskeletal: Yes: WNL Extremities: Yes: WNL Edema: No Labs: CBC, BMP 06/17/16 06:15 06/17/16 06:15 INR, PTT INR 1.01 (0.82-1.09) 06/13/16 13:20 Assessment/Plan a/p: 66 year old who recently lost home in [email or web address] with h/o HTN, HL, hypothyroidism presents with cough, LE edema. cough/low o2 sat - CT chest without significant chf and lasix has worsened cr initially so holding diuretics for now - echo unremarkable here - ce's unremarkable x3 - likely vol overload from SUSI - cont telemetry monitoring. Atach this AM -Will start low dose metoprolol succinate 25 daily HTN - holding home losartan due to susi/hyperkalemia. -SUSI getting worse. Tried bb but pt had leander and bp still high so stopped bb and started hydralazine 50 bid. HLD - con't statin SUSI - poor uop response to diuretic. - likely underlying kidney disease as etiology, renal following
[2016-06-17 11:26] LABS: HIV 1 & 2 AB NEGATIVE; HIV 1 AGp24 NEGATIVE
--- NOTE | 2016-06-17 11:30 | PN ---
Progress Note (short form) - Note Progress Note: Renal Follow up for SUSI Pt seen and examined at the bedside still has cough denies any sob or chest pain no fever or chills reports some decreased urine output Vital Signs Temperature 98.2 F 06/17/16 09:58 Pulse Rate 82 06/17/16 09:58 Respiratory Rate 19 06/17/16 09:58 Blood Pressure 147/65 06/17/16 09:58 O2 Sat by Pulse Oximetry (%) 94 L 06/16/16 22:00 Intake & Output 06/14/16 06/15/16 06/16/16 06/17/16 23:59 23:59 23:59 23:59 Intake Total 750 1150 400 Balance 750 1150 400 Weight 188 lb 3.2 oz 187 lb 6 oz Gen: NAD CVS: RRR, No M/R Lungs: slight rales at lung bases Abd: soft NT/ND, Obese Ext: Trace to 1+ edema in LE, no clubbing or cyanosis CBC, BMP 06/17/16 06:15 06/17/16 06:15 Laboratory Tests 06/14/16 06/14/16 06/14/16 09:00 09:00 16:00 Calcium Phosphorus Magnesium Iron TIBC Iron Saturation Ferritin Urine Protein 3+ H Urine Blood 3+ H Ur Leukocyte Esterase 3+ H U Random Total Protein 294 H Ur Random Sodium 21 Ur Random Potassium 53.7 Ur Random Chloride 18 Ur Random Urea Nitrogn 510 Urine Creatinine 355.0 GRAEME Screen Pending c-ANCA Pending Proteinase 3 (PR3) Pending p-ANCA Pending Atypical p-ANCA Pending Myeloperoxidase Ab Pending RPR Titer Hepatitis A IgM Ab Pending Hep Bs Antigen Pending Hep B Core IgM Ab Pending Hepatitis C Ab (EIA) Pending 06/14/16 06/15/16 06/15/16 16:00 05:35 05:35 Calcium 8.0 L Phosphorus 6.1 H Magnesium 2.9 H Iron Pending TIBC Pending Iron Saturation Pending Ferritin Urine Protein Urine Blood Ur Leukocyte Esterase U Random Total Protein Ur Random Sodium Ur Random Potassium Ur Random Chloride Ur Random Urea Nitrogn Urine Creatinine GRAEME Screen c-ANCA Proteinase 3 (PR3) p-ANCA Atypical p-ANCA Myeloperoxidase Ab RPR Titer Nonreactive Hepatitis A IgM Ab Hep Bs Antigen Hep B Core IgM Ab Hepatitis C Ab (EIA) 06/15/16 06/17/16 05:35 06:15 Calcium 8.2 L Phosphorus 8.0 H D Magnesium 2.8 H Iron TIBC Iron Saturation Ferritin 21.553 Urine Protein Urine Blood Ur Leukocyte Esterase U Random Total Protein Ur Random Sodium Ur Random Potassium Ur Random Chloride Ur Random Urea Nitrogn Urine Creatinine GRAEME Screen c-ANCA Proteinase 3 (PR3) p-ANCA Atypical p-ANCA Myeloperoxidase Ab RPR Titer Hepatitis A IgM Ab Hep Bs Antigen Hep B Core IgM Ab Hepatitis C Ab (EIA) Current Medications Acetaminophen (Tylenol -) 650 mg PO Q6H PRN PRN Reason: FEVER OR PAIN Atorvastatin Calcium (Lipitor -) 10 mg PO HS [facility] Last Admin: 06/16/16 21:10 Dose: 10 mg Calcium Acetate (Phoslo -) 667 mg PO TIDCM [facility] Last Admin: 06/17/16 09:29 Dose: 667 mg Docusate Sodium (Colace -) 100 mg PO TID [facility] Last Admin: 06/17/16 06:15 Dose: 100 mg Guaifenesin (Robitussin -) 10 ml PO Q6H PRN PRN Reason: COUGH Last Admin: 06/16/16 21:11 Dose: 10 ml Heparin Sodium (Porcine) (Heparin -) 5,000 unit SQ TID [facility] Last Admin: 06/17/16 06:15 Dose: 5,000 unit Hydralazine HCl (Apresoline -) 50 mg PO BID [facility] Last Admin: 06/17/16 09:30 Dose: 50 mg Ceftriaxone Sodium (Rocephin 1gm Ivpb (Pre-Docked)) 50 mls @ 100 mls/hr IVPB DAILY [facility] Last Admin: 06/17/16 09:28 Dose: 100 mls/hr Levothyroxine Sodium (Synthroid -) 88 mcg PO DAILY@0700 [facility] Last Admin: 06/17/16 06:15 Dose: 88 mcg Metoprolol Tartrate (Lopressor -) 25 mg PO BID [facility] Nystatin/Triamcinolone Acetonide (Mycolog Ii Cream -) 1 applic TP DAILY [facility] Last Admin: 06/17/16 09:29 Dose: 1 applic Ondansetron HCl (Zofran Injection) 4 mg IVPB Q6H PRN PRN Reason: NAUSEA Last Admin: 06/16/16 21:11 Dose: 4 mg Ranitidine HCl (Zantac -) 150 mg PO DAILY [facility] Last Admin: 06/17/16 09:30 Dose: 150 mg Sodium Bicarbonate (Sodium Bicarbonate -) 650 mg PO DAILY [facility] Last Admin: 06/17/16 09:29 Dose: 650 mg A/P 66 year old woman with PMhx of Hypertension (2 years), HLD, Hypotyrodism who presented with complaints of cough and LE swelling and found to have SUSI with BUN/Cr of 79/2.8 and K of 5.9. #Acute Kidney Injury Renal function continues to worsen will need biopsy on Saturday no overt volume overload despite CXR readings showing worsening congestion PRN lasix as needed for SOB No acute indication for dialysis at this time but there is a possibility she may need it this admission GRAEME is negative remainder of serologic work up is pending Dose all meds for Cr Cl les then 15 Jason Rice DO
[2016-06-17] MEDS: guaiFENesin 200 MG/10 ML 10 ML UNIT-DOSE CUPS PO PRN ×2 (14:06→21:24)
--- NOTE | 2016-06-17 14:55 | PN ---
Physical Exam: SUBJECTIVE: Patient seen and examined. She feels phlegm stuck in her chest. Her breathing appears less labored. at bedside. Events: - Atrial tach this AM OBJECTIVE: Vital Signs Period Temp Pulse Resp BP Sys/Estrada Pulse Ox Last 24 Hr 97.4 F-98.2 F 77-95 16-19 130-147/53-69 94-94 PE Neuro: alert, awake, cn 2-12intact Pulm: L base crackles, +dry cough + nc CV: s1 s2 rrr no mrg Abd: s nt nd + bs Ext: non pitting edema +1, warm, L ankle lesion Laboratory Results - last 24 hr 06/14/16 06/17/16 06/17/16 16:00 06:15 06:15 WBC 7.6 RBC 3.28 L Hgb 9.4 L Hct 29.2 L MCV 89.1 MCHC 32.1 RDW 14.7 Plt Count 208 MPV 10.7 Neutrophils % 71.9 Lymphocytes % 15.9 Monocytes % 7.4 Eosinophils % 3.6 Basophils % 1.2 Sodium Potassium Chloride Carbon Dioxide Anion Gap BUN Creatinine Random Glucose Calcium Phosphorus Magnesium GRAEME Screen Negative HIV 1&2 Antibody Screen HIV P24 Antigen Anti-Streptolysin Scrn < 200 06/17/16 06/17/16 06:15 06:15 WBC RBC Hgb Hct MCV MCHC RDW Plt Count MPV Neutrophils % Lymphocytes % Monocytes % Eosinophils % Basophils % Sodium 144 Potassium 5.0 Chloride 111 H Carbon Dioxide 20 L Anion Gap 13 BUN 85 H Creatinine 4.2 H D Random Glucose 87 Calcium 8.2 L Phosphorus 8.0 H D Magnesium 2.8 H GRAEME Screen HIV 1&2 Antibody Screen Negative HIV P24 Antigen Negative Anti-Streptolysin Scrn Active Medications Generic Name Dose Route Start Last Admin Trade Name Freq PRN Reason Stop Dose Admin Acetaminophen 650 mg 06/13/16 15:42 Tylenol - PO Q6H PRN FEVER OR PAIN Atorvastatin Calcium 10 mg 06/13/16 22:00 06/16/16 21:10 Lipitor - PO 10 mg HS [place] Administration Calcium Acetate 667 mg 06/16/16 12:00 06/17/16 12:30 Phoslo - PO 667 mg TIDCM [place] Administration Docusate Sodium 100 mg 06/13/16 22:00 06/17/16 14:06 Colace - PO 100 mg TID [place] Administration Guaifenesin 10 ml 06/16/16 12:38 06/17/16 14:06 Robitussin - PO 10 ml Q6H PRN Administration COUGH Heparin Sodium (Porcine) 5,000 unit 06/13/16 22:00 06/17/16 14:06 Heparin - SQ 5,000 unit TID [place] Administration Hydralazine HCl 50 mg 06/15/16 10:00 06/17/16 09:30 Apresoline - PO 50 mg BID [place] Administration Ceftriaxone Sodium 50 mls @ 100 mls/hr 06/14/16 11:15 06/17/16 09:28 Rocephin 1gm Ivpb (Pre-Docked) IVPB 100 mls/hr DAILY [place] Administration Levothyroxine Sodium 88 mcg 06/14/16 07:00 06/17/16 06:15 Synthroid - PO 88 mcg DAILY@0700 [place] Administration Metoprolol Tartrate 25 mg 06/17/16 22:00 Lopressor - PO BID [place] Nystatin/Triamcinolone Acetonide 1 applic 06/14/16 10:00 06/17/16 09:29 Mycolog Ii Cream - TP 1 applic DAILY [place] Administration Ondansetron HCl 4 mg 06/13/16 15:42 06/16/16 21:11 Zofran Injection IVPB 4 mg Q6H PRN Administration NAUSEA Ranitidine HCl 150 mg 06/14/16 10:00 06/17/16 09:30 Zantac - PO 150 mg DAILY [place] Administration Sodium Bicarbonate 650 mg 06/16/16 10:00 06/17/16 09:29 Sodium Bicarbonate - PO 650 mg DAILY [place] Administration Imaging: - ECHO with normal LV size, function, and thickness, right ventricle is normal in size and function, mild MR, trace TR - Chest CT with small bilateral pleural effusions, increased interstitial markings possibly related to congestive changes, mild bilateral platelike atelectasis. No significant consolidations or infiltrates. Mediastinal lymphadenopathy Assessment: 66 year old female with HTN, dyslipidemia, hypothyroidism admitted with worsening cough, dyspnea, and lower extremity edema with 2lb weight gain in one week and SUSI and hyperkalemia, cr in 02/28/16 1.09 Plan: 1. SUSI - Renal fxn worsening - Renal biopsy for next Saturday (ASA last dose 06/14) - HIV, GRAEME negative - F/u anca - Continue sodium bicarb daily - Continue Phoslo TID with meals - May need HD this admission, for now dose meds for cr cl <15 2. Atrial Tach - Re trial low dose metoprolol 25mg BID - Monitor HR, was bradycardic in past 3. Cough - CXR w/ worsening pleural changes - Will give x1 dose Lasix 80mg - Robitussin q6 prn - Recently treated with Azithromycin for pneumonia - Will need follow-up with pulmonary within 3 weeks for repeat chest CT to assess mediastinal adenopathy 4. HTN - Continue Hydralazine 50mg BID - ARB on hold / SUSI 5. Proteinurea - C3 C4 CH50 - Renal work up initiated 6. UTI - Ceftriaxone (day 4) 7. Weight gain, lower extremity edema - Renal work up in progress 8. Dyslipidemia - Continue Atorvastatin 9. Hypothyroid - Continue Synthroid Visit type - Emergency Visit Emergency Visit: Yes ED Registration Date: 06/13/16 Care time: The patient presented to the Emergency Department on the above date and was hospitalized for further evaluation of their emergent condition. - New Patient This patient is new to me today: No - Critical Care Critical Care patient: No
[2016-06-17] MEDS ORDERED: FUROSEMIDE 40 MG/4 ML INJECTABLE VIAL IVPUSH ONE (18:00)
[2016-06-17] MEDS: ONDANSETRON 4 MG/2 ML VIAL IVPB PRN (18:07)
[2016-06-17] MEDS: guaiFENesin 600 MG TABLET.ER (FP) PO SCH (21:25)
[2016-06-17] MEDS: METOPROLOL TARTRATE 25 MG TABLET (FP) PO SCH (21:25)
[2016-06-17] MEDS: ATORVASTATIN CA 10 MG TABLET (FP) PO SCH (21:25)
[2016-06-18] MEDS: HEPARIN NA (PORCINE) 5,000 UNITS/ML 1ML VIAL SQ SCH ×3 (05:38→21:04)
[2016-06-18] MEDS: DOCUSATE SODIUM 100 MG CAPSULE (FP) PO SCH ×3 (05:39→21:05)
[2016-06-18] MEDS: LEVOTHYROXINE NA 88 MCG TABLET (FP) PO SCH (06:11)
[2016-06-18 07:20] LABS: BASOPHIL 1.1 % (0-2.0); EOSINOPHIL 5.4 % (0-4.5); MCH 28.6 pg (25.7-33.7); MCHC 32.1 g/dl (32.0-36.0); MEAN CELL VOLUME 89.1 fl (80-96); MEAN PLT VOLUME 11.4 fl (7.5-11.1); NEUTROPHILS 61.6 % (42.8-82.8); PLATELET COUNT 189 K/MM3 (134-434); WHITE BLOOD COUNT 5.6 K/mm3 (4.0-10.0)
[2016-06-18 07:53] LABS: ALBUMIN 2.9 g/dl (3.4-5.0); BILIRUBIN,TOTAL 0.3 mg/dL (0.2-1.0); CALCIUM 8.2 mg/dL (8.5-10.1); COCKROFT - GAULT 17.1785; CREATININE 4.5 mg/dL (0.55-1.02); MAGNESIUM 2.8 mg/dL (1.8-2.4); PHOSPHOROUS 8.1 mg/dL (2.5-4.9); TOT PROT 5.3 g/dl (6.4-8.2)
[2016-06-18] MEDS: CALCIUM ACETATE 667 MG CAPSULE (FP) PO SCH ×3 (09:00→18:17)
[2016-06-18] MEDS: METOPROLOL TARTRATE 25 MG TABLET (FP) PO SCH ×2 (09:00→21:05)
[2016-06-18] MEDS: hydrALAZINE HCL 50 MG TABLET (FP) PO SCH ×2 (09:00→21:05)
[2016-06-18] MEDS: CEFTRIAXONE 50 ML IVPB SCH (09:01)
[2016-06-18] MEDS: guaiFENesin 600 MG TABLET.ER (FP) PO SCH ×2 (09:01→21:05)
[2016-06-18] MEDS: RANITIDINE HCL 150 MG TABLET (FP) PO SCH (09:01)
[2016-06-18] MEDS: NYSTATIN/TRIAMCINOLONE TOPICAL CREAM 15 GM TUBE TP SCH (09:01)
[2016-06-18] MEDS: SODIUM BICARBONATE 650 MG TABLET PO SCH (09:01)
--- NOTE | 2016-06-18 11:41 | PN ---
Progress Note (short form) - Note Progress Note: Renal Follow up for SUSI Pt seen and examined at the bedside reports that sob is better able to lay flat in bed w/o orthopnea cough persists, minimal production Vital Signs Temperature 98.2 F 06/18/16 10:00 Pulse Rate 69 06/18/16 10:00 Respiratory Rate 20 06/18/16 10:00 Blood Pressure 110/58 06/18/16 10:00 O2 Sat by Pulse Oximetry (%) 94 L 06/17/16 21:00 Intake & Output 06/15/16 06/16/16 06/17/16 06/18/16 23:59 23:59 23:59 23:59 Intake Total 1150 400 750 Output Total 100 300 Balance 1150 400 650 -300 Weight 187 lb 6 oz 192 lb 8 oz Gen: NAD CVS: RRR, No M/R Lungs: slight rales at lung bases Abd: soft NT/ND, Obese Ext: Trace to 1+ edema in LE, no clubbing or cyanosis CBC, BMP 06/18/16 05:40 06/18/16 05:40 Laboratory Tests 06/14/16 06/14/16 06/17/16 16:00 16:00 06:15 MCV Phosphorus Magnesium Albumin GRAEME Screen Negative RPR Titer Nonreactive Hepatitis A IgM Ab Negative Hep Bs Antigen Negative Hep B Core IgM Ab Negative Hepatitis C Ab (EIA) 0.1 HIV 1&2 Antibody Screen HIV P24 Antigen Anti-Streptolysin Scrn < 200 06/17/16 06/18/16 06/18/16 06:15 05:40 05:40 MCV 89.1 Phosphorus 8.1 H Magnesium 2.8 H Albumin 2.9 L GRAEME Screen RPR Titer Hepatitis A IgM Ab Hep Bs Antigen Hep B Core IgM Ab Hepatitis C Ab (EIA) HIV 1&2 Antibody Screen Negative HIV P24 Antigen Negative Anti-Streptolysin Scrn Current Medications Acetaminophen (Tylenol -) 650 mg PO Q6H PRN PRN Reason: FEVER OR PAIN Atorvastatin Calcium (Lipitor -) 10 mg PO HS [place] Last Admin: 06/17/16 21:25 Dose: 10 mg Calcium Acetate (Phoslo -) 1,334 mg PO TIDCM [place] Docusate Sodium (Colace -) 100 mg PO TID [place] Last Admin: 06/18/16 05:39 Dose: 100 mg Guaifenesin (Robitussin -) 10 ml PO Q6H PRN PRN Reason: COUGH Last Admin: 06/17/16 21:24 Dose: 10 ml Guaifenesin (Mucinex -) 600 mg PO BID [facility] Stop: 06/19/16 21:59 Last Admin: 06/18/16 09:01 Dose: 600 mg Heparin Sodium (Porcine) (Heparin -) 5,000 unit SQ TID [facility] Last Admin: 06/18/16 05:38 Dose: 5,000 unit Hydralazine HCl (Apresoline -) 50 mg PO BID [facility] Last Admin: 06/18/16 09:00 Dose: 50 mg Ceftriaxone Sodium (Rocephin 1gm Ivpb (Pre-Docked)) 50 mls @ 100 mls/hr IVPB DAILY [facility] Last Admin: 06/18/16 09:01 Dose: 100 mls/hr Levothyroxine Sodium (Synthroid -) 88 mcg PO DAILY@0700 [facility] Last Admin: 06/18/16 06:11 Dose: 88 mcg Metoprolol Tartrate (Lopressor -) 25 mg PO BID [facility] Last Admin: 06/18/16 09:00 Dose: 25 mg Nystatin/Triamcinolone Acetonide (Mycolog Ii Cream -) 1 applic TP DAILY [facility] Last Admin: 06/18/16 09:01 Dose: 1 applic Ondansetron HCl (Zofran Injection) 4 mg IVPB Q6H PRN PRN Reason: NAUSEA Last Admin: 06/17/16 18:07 Dose: 4 mg Ranitidine HCl (Zantac -) 150 mg PO DAILY [facility] Last Admin: 06/18/16 09:01 Dose: 150 mg Sodium Bicarbonate (Sodium Bicarbonate -) 650 mg PO DAILY [facility] Last Admin: 06/18/16 09:01 Dose: 650 mg A/P 66 year old woman with PMhx of Hypertension (2 years), HLD, Hypotyrodism who presented with complaints of cough and LE swelling and found to have SUSI with BUN/Cr of 79/2.8 and K of 5.9. #Acute Kidney Injury Renal function w/o improvement at this time ? oliguric urine output strict I and O HIV, Hepatitis, GRAEME, ASO all negative ANCAs pending for Biopsy on Saturday PRN Lasix for SOB May need short term HD if renal function worsens and if pt develops uremic symptoms or electrolyte imbalance Jason Rice DO
[2016-06-18] MEDS: ONDANSETRON 4 MG/2 ML VIAL IVPB PRN (13:10)
--- NOTE | 2016-06-18 15:08 | PN ---
Physical Exam: SUBJECTIVE: Patient seen and examined. She said she was feeling well this morning and now she feels sick again, specifically nauseated. Her cough persists. She did not urinate much overnight, but did this morning. OBJECTIVE: Vital Signs Period Temp Pulse Resp BP Sys/Estrada Pulse Ox Last 24 Hr 97.6 F-98.3 F 63-88 20-20 110-145/47-79 94-95 PE Neuro: alert, awake, cn 2-12intact Pulm: L base crackles, +dry cough + nc CV: s1 s2 rrr no mrg Abd: s nt nd + bs Ext: non pitting edema +1, warm, L ankle lesion Laboratory Results - last 24 hr 06/18/16 06/18/16 05:40 05:40 WBC 5.6 RBC 3.12 L Hgb 8.9 L Hct 27.8 L MCV 89.1 MCHC 32.1 RDW 15.0 Plt Count 189 MPV 11.4 H Neutrophils % 61.6 Lymphocytes % 23.1 D Monocytes % 8.8 Eosinophils % 5.4 H Basophils % 1.1 Sodium 141 Potassium 5.2 H Chloride 107 Carbon Dioxide 23 Anion Gap 11 BUN 87 H Creatinine 4.5 H Creat Clearance w eGFR 9.81 Random Glucose 81 Calcium 8.2 L Phosphorus 8.1 H Magnesium 2.8 H Total Bilirubin 0.3 AST 31 D ALT 37 Alkaline Phosphatase 76 Total Protein 5.3 L Albumin 2.9 L Active Medications Generic Name Dose Route Start Last Admin Trade Name Freq PRN Reason Stop Dose Admin Acetaminophen 650 mg 06/13/16 15:42 Tylenol - PO Q6H PRN FEVER OR PAIN Atorvastatin Calcium 10 mg 06/13/16 22:00 06/17/16 21:25 Lipitor - PO 10 mg HS [place] Administration Calcium Acetate 1,334 mg 06/18/16 12:00 06/18/16 13:03 Phoslo - PO 1,334 mg TIDCM [place] Administration Docusate Sodium 100 mg 06/13/16 22:00 06/18/16 13:03 Colace - PO 100 mg TID [place] Administration Guaifenesin 10 ml 06/16/16 12:38 06/17/16 21:24 Robitussin - PO 10 ml Q6H PRN Administration COUGH Guaifenesin 600 mg 06/17/16 22:00 06/18/16 09:01 Mucinex - PO 06/19/16 21:59 600 mg BID [place] Administration Heparin Sodium (Porcine) 5,000 unit 06/13/16 22:00 06/18/16 13:03 Heparin - SQ 5,000 unit TID [place] Administration Hydralazine HCl 50 mg 06/15/16 10:00 06/18/16 09:00 Apresoline - PO 50 mg BID [place] Administration Ceftriaxone Sodium 50 mls @ 100 mls/hr 06/14/16 11:15 06/18/16 09:01 Rocephin 1gm Ivpb (Pre-Docked) IVPB 100 mls/hr DAILY [place] Administration Levothyroxine Sodium 88 mcg 06/14/16 07:00 06/18/16 06:11 Synthroid - PO 88 mcg DAILY@0700 [place] Administration Metoprolol Tartrate 25 mg 06/17/16 22:00 06/18/16 09:00 Lopressor - PO 25 mg BID [place] Administration Nystatin/Triamcinolone Acetonide 1 applic 06/14/16 10:00 06/18/16 09:01 Mycolog Ii Cream - TP 1 applic DAILY [place] Administration Ondansetron HCl 4 mg 06/13/16 15:42 06/18/16 13:10 Zofran Injection IVPB 4 mg Q6H PRN Administration NAUSEA Ranitidine HCl 150 mg 06/14/16 10:00 06/18/16 09:01 Zantac - PO 150 mg DAILY [place] Administration Sodium Bicarbonate 650 mg 06/16/16 10:00 06/18/16 09:01 Sodium Bicarbonate - PO 650 mg DAILY [place] Administration Imaging: - ECHO with normal LV size, function, and thickness, right ventricle is normal in size and function, mild MR, trace TR - Chest CT with small bilateral pleural effusions, increased interstitial markings possibly related to congestive changes, mild bilateral platelike atelectasis. No significant consolidations or infiltrates. Mediastinal lymphadenopathy Assessment: 66 year old female with HTN, dyslipidemia, hypothyroidism admitted with worsening cough, dyspnea, and lower extremity edema with 2lb weight gain in one week and SUSI and hyperkalemia, cr in 02/28/16 1.09 Plan: 1. SUSI - Renal fxn worsening - Renal biopsy Saturday (ASA last dose 06/14) - HIV, GRAEME, Hepatitis, GRAEME, ASO negative - F/u anca - Continue sodium bicarb daily - Continue Phoslo TID with meals - May need HD this admission, for now dose meds for cr cl <15 - Mild Hyperkalemia; if worsens tomorrow will give cocktail 2. Atrial Tach - Low dose metoprolol 25mg BID - HR and BP stable thus far 3. Persistent cough, ?bronchitis - s/p IV lasix 80mg yesterday - CXR tomorrow - Robitussin q6 prn - Recently treated with Azithromycin for pneumonia - Will need follow-up with pulmonary within 3 weeks for repeat chest CT to assess mediastinal adenopathy 4. HTN - Continue Hydralazine 50mg BID - ARB on hold 2/ SUSI 5. Proteinurea - C3 C4 CH50 - Renal work up initiated 6. UTI - Ceftriaxone (day 5) 7. Weight gain, lower extremity edema - Renal work up in progress 8. Dyslipidemia - Continue Atorvastatin 9. Hypothyroid - Continue Synthroid Visit type - Emergency Visit Emergency Visit: Yes ED Registration Date: 06/13/16 Care time: The patient presented to the Emergency Department on the above date and was hospitalized for further evaluation of their emergent condition. - New Patient This patient is new to me today: No - Critical Care Critical Care patient: No
--- NOTE | 2016-06-18 19:45 | PN ---
Progress Note (short form) - Note Progress Note: S: sob sob and cough le edema improving. + swelling in hands. no cp, palps, dizziness Current Medications Acetaminophen (Tylenol -) 650 mg PO Q6H PRN PRN Reason: FEVER OR PAIN Atorvastatin Calcium (Lipitor -) 10 mg PO HS [facility] Last Admin: 06/17/16 21:25 Dose: 10 mg Calcium Acetate (Phoslo -) 1,334 mg PO TIDCM [facility] Last Admin: 06/18/16 18:17 Dose: 1,334 mg Docusate Sodium (Colace -) 100 mg PO TID [facility] Last Admin: 06/18/16 13:03 Dose: 100 mg Guaifenesin (Robitussin -) 10 ml PO Q6H PRN PRN Reason: COUGH Last Admin: 06/17/16 21:24 Dose: 10 ml Guaifenesin (Mucinex -) 600 mg PO BID [facility] Stop: 06/19/16 21:59 Last Admin: 06/18/16 09:01 Dose: 600 mg Heparin Sodium (Porcine) (Heparin -) 5,000 unit SQ TID [facility] Last Admin: 06/18/16 13:03 Dose: 5,000 unit Hydralazine HCl (Apresoline -) 50 mg PO BID [facility] Last Admin: 06/18/16 09:00 Dose: 50 mg Ceftriaxone Sodium (Rocephin 1gm Ivpb (Pre-Docked)) 50 mls @ 100 mls/hr IVPB DAILY [facility] Last Admin: 06/18/16 09:01 Dose: 100 mls/hr Levothyroxine Sodium (Synthroid -) 88 mcg PO DAILY@0700 [facility] Last Admin: 06/18/16 06:11 Dose: 88 mcg Metoprolol Tartrate (Lopressor -) 25 mg PO BID [facility] Last Admin: 06/18/16 09:00 Dose: 25 mg Nystatin/Triamcinolone Acetonide (Mycolog Ii Cream -) 1 applic TP DAILY [facility] Last Admin: 06/18/16 09:01 Dose: 1 applic Ondansetron HCl (Zofran Injection) 4 mg IVPB Q6H PRN PRN Reason: NAUSEA Last Admin: 06/18/16 13:10 Dose: 4 mg Ranitidine HCl (Zantac -) 150 mg PO DAILY [facility] Last Admin: 06/18/16 09:01 Dose: 150 mg Sodium Bicarbonate (Sodium Bicarbonate -) 650 mg PO DAILY [facility] Last Admin: 06/18/16 09:01 Dose: 650 mg Vital Signs - 24 hr 06/17/16 06/17/16 06/18/16 21:00 22:00 02:00 Temperature 97.6 F 98.1 F Pulse Rate 81 63 Respiratory 20 20 20 Rate Blood Pressure 145/79 118/53 O2 Sat by Pulse 94 L Oximetry (%) 06/18/16 06/18/16 06/18/16 06:00 09:00 10:00 Temperature 98.2 F 98.2 F Pulse Rate 64 69 Respiratory 20 20 Rate Blood Pressure 114/47 110/58 O2 Sat by Pulse 95 Oximetry (%) 06/18/16 06/18/16 14:00 18:38 Temperature 98.3 F 98.6 F Pulse Rate 72 71 Respiratory 20 18 Rate Blood Pressure 120/50 138/64 O2 Sat by Pulse Oximetry (%) Intake & Output 06/16/16 06/17/16 06/18/16 06/19/16 07:59 07:59 07:59 07:59 Intake Total 1350 200 750 50 Output Total 400 Balance 1350 200 350 50 Weight 187 lb 6 oz 192 lb 8 oz Constitutional: Yes: No Distress, Calm Eyes: Yes: WNL HENT: Yes: WNL Neck: Yes: WNL Cardiovascular: Yes: Regular Rate and Rhythm Respiratory: Yes: WNL Gastrointestinal: Yes: Normal Bowel Sounds Musculoskeletal: Yes: WNL Extremities: Yes: WNL Edema: trace Labs: CBC, BMP 06/18/16 05:40 06/18/16 05:40 tele sr, sb. Assessment/Plan a/p: 66 year old who recently lost home in [place] with h/o HTN, HL, hypothyroidism presents with cough, LE edema. cough/low o2 sat - CT chest without significant chf and lasix has worsened cr initially so holding diuretics for now - echo unremarkable here - ce's unremarkable x3 - likely vol overload from SUSI - cont telemetry monitoring. Atach -started low dose metoprolol. will decrease dose today HTN - holding home losartan due to susi/hyperkalemia. controlled on current regimen. HLD - con't statin SUSI - poor uop response to diuretic. - likely underlying kidney disease as etiology, renal following
[2016-06-18] MEDS: guaiFENesin 200 MG/10 ML 10 ML UNIT-DOSE CUPS PO PRN (21:04)
[2016-06-18] MEDS: ATORVASTATIN CA 10 MG TABLET (FP) PO SCH (21:05)
[2016-06-19 00:06] LABS: COMPLEMENT C3 81 mg/dL (82-167); COMPLEMENT C4 21 mg/dL (14-44)
[2016-06-19] MEDS: HEPARIN NA (PORCINE) 5,000 UNITS/ML 1ML VIAL SQ SCH (05:44)
[2016-06-19] MEDS: DOCUSATE SODIUM 100 MG CAPSULE (FP) PO SCH ×3 (05:44→21:03)
[2016-06-19] MEDS: LEVOTHYROXINE NA 88 MCG TABLET (FP) PO SCH (06:17)
[2016-06-19 07:18] LABS: BASOPHIL 1.2 % (0-2.0); EOSINOPHIL 4.6 % (0-4.5); MCH 28.3 pg (25.7-33.7); MCHC 31.6 g/dl (32.0-36.0); MEAN CELL VOLUME 89.3 fl (80-96); MEAN PLT VOLUME 10.9 fl (7.5-11.1); NEUTROPHILS 68.3 % (42.8-82.8); PLATELET COUNT 176 K/MM3 (134-434); RDW 14.9 % (11.6-15.6); WHITE BLOOD COUNT 6.2 K/mm3 (4.0-10.0)
[2016-06-19 07:31] LABS: BILIRUBIN,TOTAL 0.4 mg/dL (0.2-1.0); CALCIUM 8.4 mg/dL (8.5-10.1); COCKROFT - GAULT 19.89; CREATININE 3.9 mg/dL (0.55-1.02); MAGNESIUM 2.8 mg/dL (1.8-2.4)
[2016-06-19 07:32] LABS: TOT PROT 5.3 g/dl (6.4-8.2)
[2016-06-19] MEDS: CALCIUM ACETATE 667 MG CAPSULE (FP) PO SCH ×3 (08:37→17:55)
[2016-06-19] MEDS: RANITIDINE HCL 150 MG TABLET (FP) PO SCH (09:38)
[2016-06-19] MEDS: METOPROLOL SUCCINATE 25 MG TAB.SR.24H (FP) PO SCH (09:38)
[2016-06-19] MEDS: guaiFENesin 600 MG TABLET.ER (FP) PO SCH (09:38)
[2016-06-19] MEDS: SODIUM BICARBONATE 650 MG TABLET PO SCH (09:38)
[2016-06-19] MEDS: CEFTRIAXONE 50 ML IVPB SCH (09:38)
[2016-06-19] MEDS: hydrALAZINE HCL 50 MG TABLET (FP) PO SCH ×2 (09:38→21:03)
[2016-06-19] MEDS: NYSTATIN/TRIAMCINOLONE TOPICAL CREAM 15 GM TUBE TP SCH (09:39)
--- NOTE | 2016-06-19 11:20 | PN ---
Progress Note (short form) - Note Progress Note: S: sob sob and cough le edema improving. + swelling in hands. no cp, palps, dizziness Current Medications Acetaminophen (Tylenol -) 650 mg PO Q6H PRN PRN Reason: FEVER OR PAIN Atorvastatin Calcium (Lipitor -) 10 mg PO HS [facility] Last Admin: 06/18/16 21:05 Dose: 10 mg Calcium Acetate (Phoslo -) 1,334 mg PO TIDCM [facility] Last Admin: 06/19/16 08:37 Dose: 1,334 mg Docusate Sodium (Colace -) 100 mg PO TID [facility] Last Admin: 06/19/16 05:44 Dose: 100 mg Guaifenesin (Robitussin -) 10 ml PO Q6H PRN PRN Reason: COUGH Last Admin: 06/18/16 21:04 Dose: 10 ml Guaifenesin (Mucinex -) 600 mg PO BID [facility] Stop: 06/19/16 21:59 Last Admin: 06/19/16 09:38 Dose: 600 mg Heparin Sodium (Porcine) (Heparin -) 5,000 unit SQ TID [facility] Last Admin: 06/19/16 05:44 Dose: 5,000 unit Hydralazine HCl (Apresoline -) 50 mg PO BID [facility] Last Admin: 06/19/16 09:38 Dose: 50 mg Ceftriaxone Sodium (Rocephin 1gm Ivpb (Pre-Docked)) 50 mls @ 100 mls/hr IVPB DAILY [facility] Last Admin: 06/19/16 09:38 Dose: 100 mls/hr Levothyroxine Sodium (Synthroid -) 88 mcg PO DAILY@0700 [facility] Last Admin: 06/19/16 06:17 Dose: 88 mcg Metoprolol Succinate (Toprol Xl -) 25 mg PO DAILY [facility] Last Admin: 06/19/16 09:38 Dose: 25 mg Nystatin/Triamcinolone Acetonide (Mycolog Ii Cream -) 1 applic TP DAILY [facility] Last Admin: 06/19/16 09:39 Dose: 1 applic Ondansetron HCl (Zofran Injection) 4 mg IVPB Q6H PRN PRN Reason: NAUSEA Last Admin: 06/18/16 13:10 Dose: 4 mg Ranitidine HCl (Zantac -) 150 mg PO DAILY [facility] Last Admin: 06/19/16 09:38 Dose: 150 mg Sodium Bicarbonate (Sodium Bicarbonate -) 650 mg PO DAILY [place] Last Admin: 06/19/16 09:38 Dose: 650 mg Vital Signs - 24 hr 06/18/16 06/18/16 06/18/16 14:00 18:38 21:00 Temperature 98.3 F 98.6 F Pulse Rate 72 71 Respiratory 20 18 18 Rate Blood Pressure 120/50 138/64 O2 Sat by Pulse 96 Oximetry (%) 06/18/16 06/19/16 06/19/16 21:40 01:53 05:58 Temperature 98.6 F 97.6 F 97.8 F Pulse Rate 72 64 61 Respiratory 18 18 18 Rate Blood Pressure 154/75 106/50 117/45 O2 Sat by Pulse Oximetry (%) Intake & Output 06/17/16 06/18/16 06/19/16 06/20/16 07:59 07:59 07:59 07:59 Intake Total 200 750 450 Output Total 400 Balance 200 350 450 Weight 192 lb 8 oz 193 lb 8 oz Constitutional: Yes: No Distress, Calm Eyes: Yes: WNL HENT: Yes: WNL Neck: Yes: WNL Cardiovascular: Yes: Regular Rate and Rhythm Respiratory: Yes: WNL Gastrointestinal: Yes: Normal Bowel Sounds Musculoskeletal: Yes: WNL Extremities: Yes: WNL Edema: trace Labs: CBC, BMP 06/19/16 05:35 06/19/16 05:35 tele sr, sb. Assessment/Plan a/p: 66 year old who recently lost home in [place] with h/o HTN, HL, hypothyroidism presents with cough, LE edema. cough/low o2 sat - CT chest without significant chf and lasix has worsened cr initially so holding diuretics for now - echo unremarkable here - ce's unremarkable x3 - likely vol overload from SUSI - cont telemetry monitoring. Atach -started low dose metoprolol. will decrease dose today HTN - holding home losartan due to susi/hyperkalemia. controlled on current regimen. HLD - con't statin SUSI - poor uop response to diuretic. - likely underlying kidney disease as etiology, renal following
[2016-06-19] MEDS ORDERED: FUROSEMIDE 40 MG/4 ML INJECTABLE VIAL IVPUSH ONE (12:02)
--- NOTE | 2016-06-19 12:05 | PN ---
Progress Note (short form) - Note Progress Note: Renal Follow up for SUSI Pt seen and examined at the bedside cough is improved reports more swelling in LE and feet could not lay down flat today no chest pain reports improved urine output Vital Signs Temperature 98.7 F 06/19/16 10:00 Pulse Rate 70 06/19/16 10:00 Respiratory Rate 18 06/19/16 10:00 Blood Pressure 156/69 06/19/16 10:00 O2 Sat by Pulse Oximetry (%) 96 06/19/16 10:00 Intake & Output 06/16/16 06/17/16 06/18/16 06/19/16 23:59 23:59 23:59 23:59 Intake Total 400 750 250 200 Output Total 100 300 Balance 400 650 -50 200 Weight 187 lb 6 oz 192 lb 8 oz 193 lb 8 oz Gen: NAD CVS: RRR, No M/R Lungs: slight rales at lung bases Abd: soft NT/ND, Obese Ext: Trace to 1+ edema in LE, no clubbing or cyanosis CBC, BMP 06/19/16 05:35 06/19/16 05:35 Laboratory Tests 06/19/16 05:35 Magnesium 2.8 H Albumin 3.0 L Current Medications Acetaminophen (Tylenol -) 650 mg PO Q6H PRN PRN Reason: FEVER OR PAIN Atorvastatin Calcium (Lipitor -) 10 mg PO HS [facility] Last Admin: 06/18/16 21:05 Dose: 10 mg Calcium Acetate (Phoslo -) 1,334 mg PO TIDCM [facility] Last Admin: 06/19/16 08:37 Dose: 1,334 mg Docusate Sodium (Colace -) 100 mg PO TID [facility] Last Admin: 06/19/16 05:44 Dose: 100 mg Furosemide (Lasix Injection -) 80 mg IVPUSH ONCE ONE Stop: 06/19/16 12:03 Guaifenesin (Robitussin -) 10 ml PO Q6H PRN PRN Reason: COUGH Last Admin: 06/18/16 21:04 Dose: 10 ml Guaifenesin (Mucinex -) 600 mg PO BID [facility] Stop: 06/19/16 21:59 Last Admin: 06/19/16 09:38 Dose: 600 mg Heparin Sodium (Porcine) (Heparin -) 5,000 unit SQ TID [facility] Last Admin: 04/11/17 05:44 Dose: 5,000 unit Hydralazine HCl (Apresoline -) 50 mg PO BID [facility] Last Admin: 06/19/16 09:38 Dose: 50 mg Ceftriaxone Sodium (Rocephin 1gm Ivpb (Pre-Docked)) 50 mls @ 100 mls/hr IVPB DAILY [facility] Last Admin: 06/19/16 09:38 Dose: 100 mls/hr Levothyroxine Sodium (Synthroid -) 88 mcg PO DAILY@0700 [facility] Last Admin: 06/19/16 06:17 Dose: 88 mcg Metoprolol Succinate (Toprol Xl -) 25 mg PO DAILY [facility] Last Admin: 06/19/16 09:38 Dose: 25 mg Nystatin/Triamcinolone Acetonide (Mycolog Ii Cream -) 1 applic TP DAILY [facility] Last Admin: 06/19/16 09:39 Dose: 1 applic Ondansetron HCl (Zofran Injection) 4 mg IVPB Q6H PRN PRN Reason: NAUSEA Last Admin: 06/18/16 13:10 Dose: 4 mg Ranitidine HCl (Zantac -) 150 mg PO DAILY [facility] Last Admin: 06/19/16 09:38 Dose: 150 mg Sodium Bicarbonate (Sodium Bicarbonate -) 650 mg PO DAILY [facility] Last Admin: 06/19/16 09:38 Dose: 650 mg A/P 66 year old woman with PMhx of Hypertension (2 years), HLD, Hypotyrodism who presented with complaints of cough and LE swelling and found to have SUSI with BUN/Cr of 79/2.8 and K of 5.9. #Acute Kidney Injury Cr with mild improvement urine output not recorded pt with continued congestion and could not lay flat for more then a few minutes , will give IV lasix 80mg x 1 today Pt is for biopsy tomorrow hold heparin NPO after midnight no acute indication for dialysis at this time continue to trend BUN/Cr #Anemia Type and screen for the AM as pt going for procedure Trend CBC #Hyperphosphatemia Continue Parmjit Rice DO
[2016-06-19] MEDS: guaiFENesin 200 MG/10 ML 10 ML UNIT-DOSE CUPS PO PRN ×2 (13:00→21:04)
--- NOTE | 2016-06-19 15:28 | PN ---
Progress Note (short form) - Note Progress Note: s: no cp palps dizzy; mild sob o: Vital Signs Period Temp Pulse Resp BP Sys/Estrada Pulse Ox Last 24 Hr 97.6 F-98.7 F 61-73 18-18 106-156/45-75 96-96 NAD, calm JVD flat, neck supple RRR nl s1, s2 cta bl, nl effort + bs soft nt nd ext with trace/tense edema. no cyanosis, clubbing no jaundice diaphoresis Current Medications Generic Name Dose Route Start Last Admin Trade Name Freq PRN Reason Stop Dose Admin Acetaminophen 650 mg 06/13/16 15:42 Tylenol - PO Q6H PRN FEVER OR PAIN Atorvastatin Calcium 10 mg 06/13/16 22:00 06/18/16 21:05 Lipitor - PO 10 mg HS [place] Administration Calcium Acetate 1,334 mg 06/18/16 12:00 06/19/16 12:59 Phoslo - PO 1,334 mg TIDCM [place] Administration Docusate Sodium 100 mg 06/13/16 22:00 06/19/16 13:04 Colace - PO 100 mg TID [place] Administration Guaifenesin 10 ml 06/16/16 12:38 06/19/16 13:00 Robitussin - PO 10 ml Q6H PRN Administration COUGH Guaifenesin 600 mg 06/17/16 22:00 06/19/16 09:38 Mucinex - PO 06/19/16 21:59 600 mg BID [place] Administration Hydralazine HCl 50 mg 06/15/16 10:00 06/19/16 09:38 Apresoline - PO 50 mg BID [place] Administration Ceftriaxone Sodium 50 mls @ 100 mls/hr 06/14/16 11:15 06/19/16 09:38 Rocephin 1gm Ivpb (Pre-Docked) IVPB 100 mls/hr DAILY [place] Administration Levothyroxine Sodium 88 mcg 06/14/16 07:00 06/19/16 06:17 Synthroid - PO 88 mcg DAILY@0700 [place] Administration Metoprolol Succinate 25 mg 06/19/16 10:00 06/19/16 09:38 Toprol Xl - PO 25 mg DAILY [place] Administration Nystatin/Triamcinolone Acetonide 1 applic 06/14/16 10:00 06/19/16 09:39 Mycolog Ii Cream - TP 1 applic DAILY [place] Administration Ondansetron HCl 4 mg 06/13/16 15:42 06/18/16 13:10 Zofran Injection IVPB 4 mg Q6H PRN Administration NAUSEA Ranitidine HCl 150 mg 06/14/16 10:00 06/19/16 09:38 Zantac - PO 150 mg DAILY [place] Administration Sodium Bicarbonate 650 mg 06/16/16 10:00 06/19/16 09:38 Sodium Bicarbonate - PO 650 mg DAILY [place] Administration CBC, BMP 06/19/16 05:35 06/19/16 05:35 tele: sr echo 06/2016: nl lv/rv, mild mr a/p: 66 year old who recently [place] home [place] with h/o HTN, HL, hypothyroidism presents with cough, LE edema. cough/low o2 sat - CT chest without significant chf and lasix has worsened cr initially so holding standing diuretics for now - echo unremarkable here - ce's unremarkable x3 - likely vol overload from SUSI, prn lasix per renal - cont telemetry monitoring. Atach -cont bb, no further svt on tele HTN - holding home losartan due to susi/hyperkalemia. controlled on current regimen. HLD - con't statin SUSI - poor uop response to diuretic. - likely underlying kidney disease as etiology, renal following, planned for renal bx tomorrow
--- NOTE | 2016-06-19 18:55 | PN ---
Physical Exam: SUBJECTIVE: Patient seen and examined. Has intermittent nausea after eating tuna for lunch. OBJECTIVE: Vital Signs Period Temp Pulse Resp BP Sys/Estrada Pulse Ox Last 24 Hr 97.6 F-98.7 F 61-73 18-18 106-156/45-75 96-96 GENERAL: The patient is awake, alert, and fully oriented, in no acute distress. HEAD: Normal with no signs of trauma. EYES: PERRL, extraocular movements intact, sclera anicteric, conjunctiva clear. No ptosis. LUNGS: Bibasilar crackles HEART: Regular rate and rhythm, S1, S2 without murmur, rub or gallop. ABDOMEN: Soft, nontender, nondistended, normoactive bowel sounds, no guarding, no rebound EXTREMITIES: 2+ non-pitting edema bilaterally, warm, well-perfused NEUROLOGICAL: Cranial nerves II through XII grossly intact. Normal speech PSYCH: Normal mood, normal affect. Laboratory Results - last 24 hr 06/17/16 06/19/16 06/19/16 06:15 05:35 05:35 WBC 6.2 RBC 3.15 L Hgb 8.9 L Hct 28.1 L MCV 89.3 MCHC 31.6 L RDW 14.9 Plt Count 176 MPV 10.9 Neutrophils % 68.3 Lymphocytes % 16.8 D Monocytes % 9.1 Eosinophils % 4.6 H Basophils % 1.2 Sodium 140 Potassium 4.7 Chloride 106 Carbon Dioxide 20 L Anion Gap 14 BUN 89 H Creatinine 3.9 H Creat Clearance w eGFR 11.57 Random Glucose 83 Calcium 8.4 L Magnesium 2.8 H Total Bilirubin 0.4 D AST 43 H D ALT 61 D Alkaline Phosphatase 97 D Total Protein 5.3 L Albumin 3.0 L Complement C3 81 L Complement C4 21 Tot Complement (CH50) 43 Active Medications Generic Name Dose Route Start Last Admin Trade Name Freq PRN Reason Stop Dose Admin Acetaminophen 650 mg 06/13/16 15:42 Tylenol - PO Q6H PRN FEVER OR PAIN Atorvastatin Calcium 10 mg 06/13/16 22:00 06/18/16 21:05 Lipitor - PO 10 mg HS [place] Administration Calcium Acetate 1,334 mg 06/18/16 12:00 06/19/16 17:55 Phoslo - PO 1,334 mg TIDCM [place] Administration Docusate Sodium 100 mg 06/13/16 22:00 06/19/16 13:04 Colace - PO 100 mg TID [place] Administration Guaifenesin 10 ml 06/16/16 12:38 06/19/16 13:00 Robitussin - PO 10 ml Q6H PRN Administration COUGH Guaifenesin 600 mg 06/17/16 22:00 06/19/16 09:38 Mucinex - PO 06/19/16 21:59 600 mg BID [place] Administration Hydralazine HCl 50 mg 06/15/16 10:00 06/19/16 09:38 Apresoline - PO 50 mg BID [place] Administration Ceftriaxone Sodium 50 mls @ 100 mls/hr 06/14/16 11:15 06/19/16 09:38 Rocephin 1gm Ivpb (Pre-Docked) IVPB 100 mls/hr DAILY [place] Administration Levothyroxine Sodium 88 mcg 06/14/16 07:00 06/19/16 06:17 Synthroid - PO 88 mcg DAILY@0700 [place] Administration Metoprolol Succinate 25 mg 06/19/16 10:00 06/19/16 09:38 Toprol Xl - PO 25 mg DAILY [place] Administration Nystatin/Triamcinolone Acetonide 1 applic 06/14/16 10:00 06/19/16 09:39 Mycolog Ii Cream - TP 1 applic DAILY [place] Administration Ondansetron HCl 4 mg 06/13/16 15:42 06/18/16 13:10 Zofran Injection IVPB 4 mg Q6H PRN Administration NAUSEA Ranitidine HCl 150 mg 06/14/16 10:00 06/19/16 09:38 Zantac - PO 150 mg DAILY [place] Administration Sodium Bicarbonate 650 mg 06/16/16 10:00 06/19/16 09:38 Sodium Bicarbonate - PO 650 mg DAILY [place] Administration Imaging: - ECHO with normal LV size, function, and thickness, right ventricle is normal in size and function, mild MR, trace TR - Chest CT with small bilateral pleural effusions, increased interstitial markings possibly related to congestive changes, mild bilateral platelike atelectasis. No significant consolidations or infiltrates. Mediastinal lymphadenopathy ASSESSMENT/PLAN 66 year-old female with HTN, HLD, and , hypothyroidism admitted for acute kidney injury. 1. SUSI with proteinuria - Cr 3.9; was 2.8 on admission, peak 4.5 on 06/18 - Renal biopsy tomorrow (ASA last dose 06/14) - Continue sodium bicarb daily - Continue Phoslo TID with meals - May need HD this admission, for now dose meds for cr cl <15 - Lasix PRN 2. Atrial Tach - Low dose metoprolol 25mg BID - HR and BP stable thus far 3. Persistent cough possibly bronchitis v. pneumonia --no fever, no leukocytosis --06/17 CXR shows progressive congestive changes, has been treated with PRN Lasix; CXR does not rule out infiltrate --continue ceftriaxone, repeat CXR in am --will need follow-up with pulmonary within 3 weeks for repeat chest CT to assess mediastinal adenopathy 4. HTN - Continue Hydralazine 50mg BID - ARB on hold 04/12 SUSI 6. UTI - Ceftriaxone (day 6) 8. Dyslipidemia - Continue Atorvastatin 9. Hypothyroidism - Continue Synthroid Visit type - Emergency Visit Emergency Visit: Yes ED Registration Date: 06/13/16 Care time: The patient presented to the Emergency Department on the above date and was hospitalized for further evaluation of their emergent condition. - New Patient This patient is new to me today: Yes Date on this admission: 06/19/16 - Critical Care Critical Care patient: No
[2016-06-19] MEDS: ATORVASTATIN CA 10 MG TABLET (FP) PO SCH (21:03)
[2016-06-19] MEDS: ONDANSETRON 4 MG/2 ML VIAL IVPB PRN (21:03)
[2016-06-20 00:06] LABS: C-ANCA <1:20 titer (Neg:<1:20); MYELOPEROXIDASE ANTIBODY <9.0 U/mL (0.0-9.0); P-ANCA <1:20 titer (Neg:<1:20); PROTEINASE-3 ANTIBODY <3.5 U/mL (0.0-3.5)
[2016-06-20] MEDS: DOCUSATE SODIUM 100 MG CAPSULE (FP) PO SCH ×3 (06:02→21:22)
[2016-06-20] MEDS: LEVOTHYROXINE NA 88 MCG TABLET (FP) PO SCH (06:05)
[2016-06-20 08:03] LABS: BASOPHIL 2.6 % (0-2.0); EOSINOPHIL 4.4 % (0-4.5); MCH 28.2 pg (25.7-33.7); MCHC 31.8 g/dl (32.0-36.0); MEAN CELL VOLUME 88.6 fl (80-96); MEAN PLT VOLUME 11.1 fl (7.5-11.1); NEUTROPHILS 66.7 % (42.8-82.8); PLATELET COUNT 166 K/MM3 (134-434); RDW 14.4 % (11.6-15.6); WHITE BLOOD COUNT 5.6 K/mm3 (4.0-10.0)
[2016-06-20] MEDS: CALCIUM ACETATE 667 MG CAPSULE (FP) PO SCH ×3 (08:26→17:54)
[2016-06-20 08:34] LABS: ALBUMIN 3.1 g/dl (3.4-5.0); BILIRUBIN,TOTAL 0.2 mg/dL (0.2-1.0); CALCIUM 8.7 mg/dL (8.5-10.1); COCKROFT - GAULT 24.123; CREATININE 3.2 mg/dL (0.55-1.02); MAGNESIUM 2.9 mg/dL (1.8-2.4); TOT PROT 5.4 g/dl (6.4-8.2)
[2016-06-20] MEDS: METOPROLOL SUCCINATE 25 MG TAB.SR.24H (FP) PO SCH (09:45)
[2016-06-20] MEDS: hydrALAZINE HCL 50 MG TABLET (FP) PO SCH ×2 (09:45→21:22)
[2016-06-20] MEDS: SODIUM BICARBONATE 650 MG TABLET PO SCH (09:45)
[2016-06-20] MEDS: CEFTRIAXONE 50 ML IVPB SCH (09:48)
[2016-06-20] MEDS: RANITIDINE HCL 150 MG TABLET (FP) PO SCH (09:49)
[2016-06-20] MEDS: NYSTATIN/TRIAMCINOLONE TOPICAL CREAM 15 GM TUBE TP SCH (09:49)
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
[2016-06-20] MEDS: ONDANSETRON 4 MG/2 ML VIAL IVPB PRN (12:42)
--- NOTE | 2016-06-20 12:52 | PN ---
Progress Note (short form) - Note Progress Note: Renal Follow up for SUSI Pt seen and examined at the bedside s/p renal biopsy pt denies any pain no hematuria laying in bed flat urine output improved as of yesterday Vital Signs Temperature 98.2 F 06/20/16 11:53 Pulse Rate 71 06/20/16 11:53 Respiratory Rate 14 06/20/16 11:53 Blood Pressure 178/84 06/20/16 11:53 O2 Sat by Pulse Oximetry (%) 94 L 06/20/16 11:53 Intake & Output 06/17/16 06/18/16 06/19/16 06/20/16 23:59 23:59 23:59 23:59 Intake Total 750 250 440 Output Total 100 300 700 100 Balance 650 -50 -260 -100 Weight 192 lb 8 oz 193 lb 8 oz 192 lb 4 oz Gen: NAD CVS: RRR, No M/R Lungs: slight rales at lung bases Abd: soft NT/ND, Obese Ext: Trace to 1+ edema in LE, no clubbing or cyanosis CBC, BMP 06/20/16 07:07 06/20/16 07:07 Laboratory Tests 06/20/16 07:07 Calcium 8.7 Phosphorus 6.0 H D Magnesium 2.9 H Albumin 3.1 L Current Medications Acetaminophen (Tylenol -) 650 mg PO Q6H PRN PRN Reason: FEVER OR PAIN Atorvastatin Calcium (Lipitor -) 10 mg PO HS [facility] Last Admin: 06/19/16 21:03 Dose: 10 mg Calcium Acetate (Phoslo -) 1,334 mg PO TIDCM [facility] Last Admin: 06/20/16 12:37 Dose: 1,334 mg Docusate Sodium (Colace -) 100 mg PO TID [facility] Last Admin: 06/20/16 06:02 Dose: Not Given Guaifenesin (Robitussin -) 10 ml PO Q6H PRN PRN Reason: COUGH Last Admin: 06/19/16 21:04 Dose: 10 ml Hydralazine HCl (Apresoline -) 50 mg PO BID [facility] Last Admin: 06/20/16 09:45 Dose: 50 mg Ceftriaxone Sodium (Rocephin 1gm Ivpb (Pre-Docked)) 50 mls @ 100 mls/hr IVPB DAILY [facility] Last Admin: 06/20/16 09:48 Dose: 100 mls/hr Levothyroxine Sodium (Synthroid -) 88 mcg PO DAILY@0700 [facility] Last Admin: 06/20/16 06:05 Dose: 88 mcg Metoprolol Succinate (Toprol Xl -) 25 mg PO DAILY [facility] Last Admin: 06/20/16 09:45 Dose: 25 mg Nystatin/Triamcinolone Acetonide (Mycolog Ii Cream -) 1 applic TP DAILY [facility] Last Admin: 06/20/16 09:49 Dose: 1 applic Ondansetron HCl (Zofran Injection) 4 mg IVPB Q6H PRN PRN Reason: NAUSEA Last Admin: 06/20/16 12:42 Dose: 4 mg Ranitidine HCl (Zantac -) 150 mg PO DAILY [facility] Last Admin: 06/20/16 09:49 Dose: Not Given Sodium Bicarbonate (Sodium Bicarbonate -) 650 mg PO DAILY [facility] Last Admin: 06/20/16 09:45 Dose: 650 mg A/P 66 year old woman with PMhx of Hypertension (2 years), HLD, Hypotyrodism who presented with complaints of cough and LE swelling and found to have SUSI with BUN/Cr of 79/2.8 and K of 5.9. #Acute Kidney Injury with subnephrotic proteinuria Renal function with mild improvement s/p Renal biopsy today, hopefully will get a preliminary report tomorrow pt to lay flat in the bed for 6 hours, rack all urines to monitor for hematuria repeat cbc in the PM ANCA's now reported as negative Trend BUN/Cr Lasix PRN as needed for sob #Hyperphosphatemia Continue Parmjit Rice DO
--- NOTE | 2016-06-20 16:27 | PN ---
Progress Note, Physician Chief Complaint: Ms Zuniga says she feels fine. No cp, sob, n/v. Minimal pain at biopsy site. - Current Medication List Current Medications: Active Medications Acetaminophen (Tylenol -) 650 mg PO Q6H PRN PRN Reason: FEVER OR PAIN Atorvastatin Calcium (Lipitor -) 10 mg PO HS [facility] Last Admin: 06/19/16 21:03 Dose: 10 mg Calcium Acetate (Phoslo -) 1,334 mg PO TIDCM [facility] Last Admin: 06/20/16 12:37 Dose: 1,334 mg Docusate Sodium (Colace -) 100 mg PO TID [facility] Last Admin: 06/20/16 14:40 Dose: Not Given Guaifenesin (Robitussin -) 10 ml PO Q6H PRN PRN Reason: COUGH Last Admin: 06/19/16 21:04 Dose: 10 ml Hydralazine HCl (Apresoline -) 50 mg PO BID [facility] Last Admin: 06/20/16 09:45 Dose: 50 mg Ceftriaxone Sodium (Rocephin 1gm Ivpb (Pre-Docked)) 50 mls @ 100 mls/hr IVPB DAILY [facility] Last Admin: 06/20/16 09:48 Dose: 100 mls/hr Levothyroxine Sodium (Synthroid -) 88 mcg PO DAILY@0700 [facility] Last Admin: 06/20/16 06:05 Dose: 88 mcg Metoprolol Succinate (Toprol Xl -) 25 mg PO DAILY [facility] Last Admin: 06/20/16 09:45 Dose: 25 mg Nystatin/Triamcinolone Acetonide (Mycolog Ii Cream -) 1 applic TP DAILY [facility] Last Admin: 06/20/16 09:49 Dose: 1 applic Ondansetron HCl (Zofran Injection) 4 mg IVPB Q6H PRN PRN Reason: NAUSEA Last Admin: 06/20/16 12:42 Dose: 4 mg Ranitidine HCl (Zantac -) 150 mg PO DAILY [facility] Last Admin: 06/20/16 09:49 Dose: Not Given Sodium Bicarbonate (Sodium Bicarbonate -) 650 mg PO DAILY [facility] Last Admin: 06/20/16 09:45 Dose: 650 mg - Objective Vital Signs: Vital Signs Temperature 98.7 F 06/20/16 15:32 Pulse Rate 88 06/20/16 15:32 Respiratory Rate 20 06/20/16 15:32 Blood Pressure 118/54 06/20/16 15:32 O2 Sat by Pulse Oximetry (%) 94 L 06/20/16 11:53 Constitutional: Yes: Well Nourished, No Distress, Calm Cardiovascular: Yes: Regular Rate and Rhythm. No: Gallop, Murmur, Rub Respiratory: Yes: Regular, CTA Bilaterally. No: Rales, Rhonchi, Wheezes Gastrointestinal: Yes: Normal Bowel Sounds, Soft. No: Distention, Tenderness Extremities: Yes: WNL Edema: No Labs: CBC, BMP 06/20/16 07:07 06/20/16 07:07 INR, PTT INR 1.01 (0.82-1.09) 06/13/16 13:20 Problem List - Problems (1) Acute renal insufficiency Assessment/Plan: -appreciate nephrology assistance -stable today -s/p biopsy, await results Code(s): N28.9 - DISORDER OF KIDNEY AND URETER, UNSPECIFIED (2) Arrhythmia Assessment/Plan: -cardiology following -currently controlled -continue toprol xl Code(s): I49.9 - CARDIAC ARRHYTHMIA, UNSPECIFIED Qualifiers: Arrhythmia type: unspecified cardiac arrhythmia Qualified Code(s): I49.9 - Cardiac arrhythmia, unspecified (3) Dyslipidemia Assessment/Plan: -continue lipitor Code(s): E78.5 - HYPERLIPIDEMIA, UNSPECIFIED (4) Hypertension Assessment/Plan: -holding lasix and losartan -continue toprol xl and hydralazine -elevated this am since npo and meds held, controlled when given Code(s): I10 - ESSENTIAL (PRIMARY) HYPERTENSION
[2016-06-20 16:33] LABS: MCH 28.5 pg (25.7-33.7); MCHC 32.3 g/dl (32.0-36.0); MEAN CELL VOLUME 88.1 fl (80-96); MEAN PLT VOLUME 11.4 fl (7.5-11.1); PLATELET COUNT 217 K/MM3 (134-434); RDW 14.9 % (11.6-15.6); WHITE BLOOD COUNT 9.3 K/mm3 (4.0-10.0)
[2016-06-20] MEDS: ATORVASTATIN CA 10 MG TABLET (FP) PO SCH (21:22)
[2016-06-21] MEDS: DOCUSATE SODIUM 100 MG CAPSULE (FP) PO SCH ×3 (05:17→21:03)
[2016-06-21] MEDS: LEVOTHYROXINE NA 88 MCG TABLET (FP) PO SCH (06:02)
[2016-06-21 07:31] LABS: BASOPHIL 1.1 % (0-2.0); EOSINOPHIL 2.8 % (0-4.5); MCH 28.8 pg (25.7-33.7); MCHC 32.8 g/dl (32.0-36.0); MEAN CELL VOLUME 87.8 fl (80-96); MEAN PLT VOLUME 11.1 fl (7.5-11.1); NEUTROPHILS 75.2 % (42.8-82.8); PLATELET COUNT 160 K/MM3 (134-434); RDW 14.6 % (11.6-15.6); WHITE BLOOD COUNT 7.5 K/mm3 (4.0-10.0)
[2016-06-21 08:10] LABS: CALCIUM 8.8 mg/dL (8.5-10.1); MAGNESIUM 2.8 mg/dL (1.8-2.4)
[2016-06-21 08:15] LABS: BILIRUBIN,TOTAL 0.3 mg/dL (0.2-1.0); COCKROFT - GAULT 25.636; PHOSPHOROUS 5.4 mg/dL (2.5-4.9); TOT PROT 5.2 g/dl (6.4-8.2)
[2016-06-21] MEDS ORDERED: PT OWN MED DRAWER 7, Y5N ONE (10:34)
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
[2016-06-21] MEDS: CALCIUM ACETATE 667 MG CAPSULE (FP) PO SCH ×3 (10:52→18:37)
[2016-06-21] MEDS: RANITIDINE HCL 150 MG TABLET (FP) PO SCH (10:53)
[2016-06-21] MEDS: METOPROLOL SUCCINATE 25 MG TAB.SR.24H (FP) PO SCH (10:53)
[2016-06-21] MEDS: SODIUM BICARBONATE 650 MG TABLET PO SCH (10:53)
[2016-06-21] MEDS: CEFTRIAXONE 50 ML IVPB SCH (10:53)
[2016-06-21] MEDS: NYSTATIN/TRIAMCINOLONE TOPICAL CREAM 15 GM TUBE TP SCH (10:53)
--- NOTE | 2016-06-21 10:55 | PN ---
Progress Note, Physician Chief Complaint: Ms Zuniga is without complaint, says she is feeling well today. No cp, sob, n/v. - Current Medication List Current Medications: Active Medications Acetaminophen (Tylenol -) 650 mg PO Q6H PRN PRN Reason: FEVER OR PAIN Atorvastatin Calcium (Lipitor -) 10 mg PO HS [facility] Last Admin: 06/20/16 21:22 Dose: 10 mg Calcium Acetate (Phoslo -) 1,334 mg PO TIDCM [facility] Last Admin: 06/20/16 17:54 Dose: 1,334 mg Docusate Sodium (Colace -) 100 mg PO TID [facility] Last Admin: 06/21/16 05:17 Dose: 100 mg Guaifenesin (Robitussin -) 10 ml PO Q6H PRN PRN Reason: COUGH Last Admin: 06/19/16 21:04 Dose: 10 ml Hydralazine HCl (Apresoline -) 50 mg PO BID [facility] Last Admin: 06/20/16 21:22 Dose: 50 mg Ceftriaxone Sodium (Rocephin 1gm Ivpb (Pre-Docked)) 50 mls @ 100 mls/hr IVPB DAILY [facility] Last Admin: 06/20/16 09:48 Dose: 100 mls/hr Levothyroxine Sodium (Synthroid -) 88 mcg PO DAILY@0700 [facility] Last Admin: 06/21/16 06:02 Dose: 88 mcg Metoprolol Succinate (Toprol Xl -) 25 mg PO DAILY [facility] Last Admin: 06/20/16 09:45 Dose: 25 mg Nystatin/Triamcinolone Acetonide (Mycolog Ii Cream -) 1 applic TP DAILY [facility] Last Admin: 06/20/16 09:49 Dose: 1 applic Ondansetron HCl (Zofran Injection) 4 mg IVPB Q6H PRN PRN Reason: NAUSEA Last Admin: 06/20/16 12:42 Dose: 4 mg Ranitidine HCl (Zantac -) 150 mg PO DAILY [facility] Last Admin: 06/20/16 09:49 Dose: Not Given Sodium Bicarbonate (Sodium Bicarbonate -) 650 mg PO DAILY [facility] Last Admin: 06/20/16 09:45 Dose: 650 mg - Objective Vital Signs: Vital Signs Temperature 98.2 F 06/21/16 06:00 Pulse Rate 70 06/21/16 06:00 Respiratory Rate 20 06/21/16 06:00 Blood Pressure 142/74 06/21/16 06:00 O2 Sat by Pulse Oximetry (%) 96 06/20/16 21:00 Constitutional: Yes: Well Nourished, No Distress, Calm Cardiovascular: Yes: Regular Rate and Rhythm. No: Gallop, Murmur, Rub Respiratory: Yes: Regular, CTA Bilaterally. No: Rales, Rhonchi, Wheezes Gastrointestinal: Yes: Normal Bowel Sounds, Soft. No: Distention, Tenderness Extremities: Yes: WNL Edema: Yes Edema: LLE: 2+, RLE: 2+ Labs: CBC, BMP 06/21/16 06:30 06/21/16 06:30 INR, PTT INR 1.01 (0.82-1.09) 06/13/16 13:20 Problem List - Problems (1) Acute renal insufficiency Code(s): N28.9 - DISORDER OF KIDNEY AND URETER, UNSPECIFIED (2) Arrhythmia Code(s): I49.9 - CARDIAC ARRHYTHMIA, UNSPECIFIED Qualifiers: Arrhythmia type: unspecified cardiac arrhythmia Qualified Code(s): I49.9 - Cardiac arrhythmia, unspecified (3) Dyslipidemia Code(s): E78.5 - HYPERLIPIDEMIA, UNSPECIFIED (4) Hypertension Code(s): I10 - ESSENTIAL (PRIMARY) HYPERTENSION Assessment/Plan (1) Acute renal insufficiency Assessment/Plan: -appreciate nephrology assistance -slight improvement -awaiting biopsy results -patient says urine output is increasing, but not normal Code(s): N28.9 - DISORDER OF KIDNEY AND URETER, UNSPECIFIED (2) Arrhythmia Assessment/Plan: -cardiology following -currently controlled -continue toprol xl Code(s): I49.9 - CARDIAC ARRHYTHMIA, UNSPECIFIED Qualifiers: Arrhythmia type: unspecified cardiac arrhythmia Qualified Code(s): I49.9 - Cardiac arrhythmia, unspecified (3) Dyslipidemia Assessment/Plan: -continue lipitor Code(s): E78.5 - HYPERLIPIDEMIA, UNSPECIFIED (4) Hypertension Assessment/Plan: -holding lasix and losartan -continue toprol xl and hydralazine -controlled Code(s): I10 - ESSENTIAL (PRIMARY) HYPERTENSION
[2016-06-21] MEDS ORDERED: FUROSEMIDE 40 MG/4 ML INJECTABLE VIAL IVPUSH ONE (11:30)
--- NOTE | 2016-06-21 12:30 | PN ---
Progress Note (short form) - Note Progress Note: Renal Follow up for SUSI Pt seen and examined at the bedside no acute complaints continues to cough but reports that it is less so then before no flank pain has some blood in her urine, no gross blood no sob or chest pain legs remains swollen urine output is improved Vital Signs Temperature 97.4 F L 06/21/16 09:00 Pulse Rate 67 06/21/16 09:00 Respiratory Rate 18 06/21/16 09:00 Blood Pressure 160/50 06/21/16 09:00 O2 Sat by Pulse Oximetry (%) 96 06/20/16 21:00 Intake & Output 06/18/16 06/19/16 06/20/16 06/21/16 23:59 23:59 23:59 23:59 Intake Total 250 440 200 250 Output Total 300 700 500 200 Balance -50 -260 -300 50 Weight 192 lb 8 oz 193 lb 8 oz 192 lb 4 oz 191 lb 8 oz Gen: NAD CVS: RRR, No M/R Lungs: slight rales at lung bases Abd: soft NT/ND, Obese Ext: Trace to 1+ edema in LE, no clubbing or cyanosis CBC, BMP 06/21/16 06:30 06/21/16 06:30 Laboratory Tests 06/21/16 06:30 Calcium 8.8 Phosphorus 5.4 H Magnesium 2.8 H Albumin 3.0 L Current Medications Acetaminophen (Tylenol -) 650 mg PO Q6H PRN PRN Reason: FEVER OR PAIN Atorvastatin Calcium (Lipitor -) 10 mg PO HS [facility] Last Admin: 06/20/16 21:22 Dose: 10 mg Calcium Acetate (Phoslo -) 1,334 mg PO TIDCM [facility] Last Admin: 06/21/16 10:52 Dose: 1,334 mg Docusate Sodium (Colace -) 100 mg PO TID [facility] Last Admin: 06/21/16 05:17 Dose: 100 mg Guaifenesin (Robitussin -) 10 ml PO Q6H PRN PRN Reason: COUGH Last Admin: 06/19/16 21:04 Dose: 10 ml Hydralazine HCl (Apresoline -) 50 mg PO BID [facility] Last Admin: 06/20/16 21:22 Dose: 50 mg Levothyroxine Sodium (Synthroid -) 88 mcg PO DAILY@0700 [facility] Last Admin: 06/21/16 06:02 Dose: 88 mcg Metoprolol Succinate (Toprol Xl -) 25 mg PO DAILY [facility] Last Admin: 06/21/16 10:53 Dose: 25 mg Nystatin/Triamcinolone Acetonide (Mycolog Ii Cream -) 1 applic TP DAILY [facility] Last Admin: 06/21/16 10:53 Dose: 1 applic Ondansetron HCl (Zofran Injection) 4 mg IVPB Q6H PRN PRN Reason: NAUSEA Last Admin: 06/20/16 12:42 Dose: 4 mg Ranitidine HCl (Zantac -) 150 mg PO DAILY [facility] Last Admin: 06/21/16 10:53 Dose: 150 mg Sodium Bicarbonate (Sodium Bicarbonate -) 650 mg PO DAILY [facility] Last Admin: 06/21/16 10:53 Dose: 650 mg A/P 66 year old woman with PMhx of Hypertension (2 years), HLD, Hypotyrodism who presented with complaints of cough and LE swelling and found to have SUSI with BUN/Cr of 79/2.8 and K of 5.9. #Acute Kidney Injury with subnephrotic proteinuria Cr improved to 3 with improved urine output s/p Biopsy, no prelim report as of yet LE edema persists and lung still have congestion, will give IV lasix 40mg today ANCAs negative, only serologic abnormality is slightly low c3 no indication for [employer] Trend BUN/Cr #Hyperphosphatemia Continue Parmjit Rice DO
[2016-06-21] MEDS: hydrALAZINE HCL 50 MG TABLET (FP) PO SCH ×2 (13:49→21:03)
[2016-06-21] MEDS: guaiFENesin 200 MG/10 ML 10 ML UNIT-DOSE CUPS PO PRN (21:03)
[2016-06-21] MEDS: ATORVASTATIN CA 10 MG TABLET (FP) PO SCH (21:03)
[2016-06-22] MEDS: guaiFENesin 200 MG/10 ML 10 ML UNIT-DOSE CUPS PO PRN ×2 (06:13→12:59)
[2016-06-22] MEDS: DOCUSATE SODIUM 100 MG CAPSULE (FP) PO SCH ×2 (06:13→13:15)
[2016-06-22] MEDS: LEVOTHYROXINE NA 88 MCG TABLET (FP) PO SCH (06:13)
[2016-06-22 06:31] VITALS: TEMP 98.1
[2016-06-22 07:39] LABS: BASOPHIL 1.2 % (0-2.0); EOSINOPHIL 4.4 % (0-4.5); MCH 28.8 pg (25.7-33.7); MCHC 32.9 g/dl (32.0-36.0); MEAN CELL VOLUME 87.6 fl (80-96); MEAN PLT VOLUME 11.6 fl (7.5-11.1); NEUTROPHILS 68.4 % (42.8-82.8); PLATELET COUNT 196 K/MM3 (134-434); RDW 14.4 % (11.6-15.6); WHITE BLOOD COUNT 8.3 K/mm3 (4.0-10.0)
[2016-06-22 08:03] LABS: CALCIUM 9.5 mg/dL (8.5-10.1); MAGNESIUM 2.7 mg/dL (1.8-2.4)
[2016-06-22 08:05] LABS: COCKROFT - GAULT 28.4325; CREATININE 2.7 mg/dL (0.55-1.02); PHOSPHOROUS 4.8 mg/dL (2.5-4.9)
[2016-06-22] MEDS: CALCIUM ACETATE 667 MG CAPSULE (FP) PO SCH ×2 (08:53→12:59)
[2016-06-22] MEDS: SODIUM BICARBONATE 650 MG TABLET PO SCH (08:59)
[2016-06-22] MEDS: RANITIDINE HCL 150 MG TABLET (FP) PO SCH (08:59)
[2016-06-22] MEDS: METOPROLOL SUCCINATE 25 MG TAB.SR.24H (FP) PO SCH (08:59)
[2016-06-22] MEDS: hydrALAZINE HCL 50 MG TABLET (FP) PO SCH (08:59)
[2016-06-22] MEDS: NYSTATIN/TRIAMCINOLONE TOPICAL CREAM 15 GM TUBE TP SCH (08:59)
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
--- NOTE | 2016-06-22 12:09 | PN ---
Progress Note (short form) - Note Progress Note: Renal Follow up for SUSI Pt seen and examined at the bedside Prelim pathlogy report discussed with pt and Dr. Golden Pt feels better still has a cough no sob or chest pain Good urine output Vital Signs Temperature 98.1 F 06/22/16 10:00 Pulse Rate 83 06/22/16 10:00 Respiratory Rate 20 06/22/16 10:00 Blood Pressure 164/77 06/22/16 10:00 O2 Sat by Pulse Oximetry (%) 95 06/22/16 09:00 Intake & Output 06/19/16 06/20/16 06/21/16 06/22/16 23:59 23:59 23:59 23:59 Intake Total 440 200 450 200 Output Total 700 500 200 Balance -260 -300 250 200 Weight 193 lb 8 oz 192 lb 4 oz 191 lb 8 oz 191 lb 3.2 oz Gen: NAD CVS: RRR, No M/R Lungs: slight rales at lung bases Abd: soft NT/ND, Obese Ext: Trace to 1+ edema in LE, no clubbing or cyanosis CBC, BMP 06/22/16 06:00 06/22/16 06:00 Current Medications Acetaminophen (Tylenol -) 650 mg PO Q6H PRN PRN Reason: FEVER OR PAIN Atorvastatin Calcium (Lipitor -) 10 mg PO HS [facility] Last Admin: 06/21/16 21:03 Dose: 10 mg Calcium Acetate (Phoslo -) 1,334 mg PO TIDCM [facility] Last Admin: 06/22/16 08:53 Dose: 1,334 mg Docusate Sodium (Colace -) 100 mg PO TID [facility] Last Admin: 06/22/16 06:13 Dose: 100 mg Guaifenesin (Robitussin -) 10 ml PO Q6H PRN PRN Reason: COUGH Last Admin: 06/22/16 06:13 Dose: 10 ml Hydralazine HCl (Apresoline -) 50 mg PO BID [facility] Last Admin: 06/22/16 08:59 Dose: 50 mg Levothyroxine Sodium (Synthroid -) 88 mcg PO DAILY@0700 [facility] Last Admin: 06/22/16 06:13 Dose: 88 mcg Metoprolol Succinate (Toprol Xl -) 25 mg PO DAILY [facility] Last Admin: 06/22/16 08:59 Dose: 25 mg Nystatin/Triamcinolone Acetonide (Mycolog Ii Cream -) 1 applic TP DAILY [facility] Last Admin: 06/22/16 08:59 Dose: 1 applic Ondansetron HCl (Zofran Injection) 4 mg IVPB Q6H PRN PRN Reason: NAUSEA Last Admin: 06/20/16 12:42 Dose: 4 mg Prednisone (Deltasone -) 60 mg PO DAILY [facility] Ranitidine HCl (Zantac -) 150 mg PO DAILY [facility] Last Admin: 06/22/16 08:59 Dose: 150 mg Sodium Bicarbonate (Sodium Bicarbonate -) 650 mg PO DAILY [facility] Last Admin: 06/22/16 08:59 Dose: 650 mg A/P 66 year old woman with PMhx of Hypertension (2 years), HLD, Hypotyrodism who presented with complaints of cough and LE swelling and found to have SUSI with BUN/Cr of 79/2.8 and K of 5.9. 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
[2016-06-22] MEDS ORDERED: predniSONE 20 MG TABLET (UD) PO SCH (12:15)
--- NOTE | 2016-06-22 12:15 | DS ---
Physical Examination Vital Signs: Vital Signs Temperature 98.1 F 06/22/16 10:00 Pulse Rate 83 06/22/16 10:00 Respiratory Rate 20 06/22/16 10:00 Blood Pressure 164/77 06/22/16 10:00 O2 Sat by Pulse Oximetry (%) 95 06/22/16 09:00 Constitutional: Yes: Well Nourished, No Distress, Calm Cardiovascular: Yes: Regular Rate and Rhythm. No: Gallop, Murmur, Rub Respiratory: Yes: Regular, CTA Bilaterally. No: Rales, Rhonchi, Wheezes Gastrointestinal: Yes: Normal Bowel Sounds, Soft. No: Distention, Tenderness Extremities: Yes: WNL Edema: No Labs: CBC, BMP 06/22/16 06:00 06/22/16 06:00 Discharge Summary Reason For Visit: CARDIAC ARRHYTHMIA,TELMA Current Active Problems Acute renal insufficiency (Acute) Arrhythmia (Acute) DVT prophylaxis (Acute) Dyslipidemia (Acute) Hyperkalemia (Acute) Hypertension (Acute) Pulmonary edema (Acute) Renal insufficiency (Acute) Hospital Course: (1) Acute renal insufficiency Code(s): N28.9 - DISORDER OF KIDNEY AND URETER, UNSPECIFIED (2) Arrhythmia Code(s): I49.9 - CARDIAC ARRHYTHMIA, UNSPECIFIED Qualifiers: Arrhythmia type: unspecified cardiac arrhythmia Qualified Code(s): I49.9 - Cardiac arrhythmia, unspecified (3) Dyslipidemia Code(s): E78.5 - HYPERLIPIDEMIA, UNSPECIFIED (4) Hypertension Code(s): I10 - ESSENTIAL (PRIMARY) HYPERTENSION Mrs Zuniga is a pleasant 66 year old female who comes in with acute renal failure. She was admitted to the hospital and hydrated, however this did not improve. She was seen by nephrology and multiple tests were sent that were unrevealing. 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 Her renal function stabilized and she was cleared by nephrology for discharge home. She is to follow up with Dr Rice on Saturday with labs. 35 minutes spent in preparation of discharge Condition: Good - Instructions Diet, Activity, Other Instructions: renal diet. resume previous activity Referrals: Jason Rice MD [Staff Physician] - Carla Hernández MD [Primary Care Provider] - Disposition: VNS/HOME HEALTH CARE - Home Medications Comprehensive Discharge Medication List: Ambulatory Orders Atorvastatin Calcium 10 mg PO HS 06/13/16 Furosemide [Lasix] 40 mg PO DAILY 06/13/16 Levothyroxine Sodium [Synthroid] 88 mcg PO DAILY 06/13/16 Nystatin/Triamcin [Nystatin-Triamcinolone Cream] 15 gm TP DAILY 06/13/16 Ranitidine [Zantac -] 150 mg PO DAILY 06/13/16 Calcium Acetate [Phoslo -] 1,334 mg PO TIDCM #90 cap 06/22/16 Hydralazine HCl [Apresoline -] 50 mg PO BID #60 tablet 06/22/16 Metoprolol Succinate [Toprol XL -] 25 mg PO DAILY #30 tab 06/22/16 Prednisone [Deltasone -] 60 mg PO DAILY #90 tablet 06/22/16 Ranitidine [Zantac -] 150 mg PO DAILY #30 tablet 06/22/16 Sodium Bicarbonate - 650 mg PO DAILY #30 tablet 06/22/16
[2016-06-22] MEDS ORDERED: FUROSEMIDE 40 MG TABLET (FP) PO ONE (12:30)
[2016-06-22 14:28] VITALS: BP 179/77; PULSE 62
[2016-06-22 14:32] LABS: URINE APPEARANCE CLOUDY; URINE BILIRUBIN NEGATIVE (NEGATIVE); URINE BLOOD 3+ (NEGATIVE); URINE COLOR DKYELLOW; URINE GLUCOSE (UA) NEGATIVE (NEGATIVE); URINE KETONE NEGATIVE (NEGATIVE); URINE LEUK ESTERASE 3+ (NEGATIVE); URINE NITRITE NEGATIVE (NEGATIVE); URINE PROTEIN 3+ (NEGATIVE); URINE UROBILINOGEN NEGATIVE E.U./dl (0.2-1.0)
[2016-06-22 14:36] LABS: URINE BACTERIA RARE /hpf (NONE SEEN); URINE HYALINE CAST 5 /lpf; URINE MUCUS FEW; URINE RBC 1167 /hpf (0-3); URINE WBC 121 /hpf (3-5)
[2016-06-22] MEDS ORDERED: hydrALAZINE HCL 50 MG TABLET (FP) PO ONE (14:36)
[2016-06-26 00:06] LABS: A/G RATIO 1.3 (0.7-1.7); ALBUMIN 3.1 g/dL (2.9-4.4); GLOBULIN, TOTAL 2.4 g/dL (2.2-3.9); M-SPIKE Not Observed g/dL (Not Observed); TOTAL PROTEIN 5.5 g/dL (6.0-8.5)
--- NOTE | 2016-07-12 16:28 | PATH ---
Surgical Pathology Report Patient Name: NERI MATTSON [facility]. Rec. #: [id number] /Age/Gender: 1950 (Age: 66) / F Account: [id number] Location: 4 SO PEDS/ADOL Taken: 06/20/2016 Received: 06/20/2016 Reported: 07/12/2016 Physicians: David Patel M.D. Specimen(s) Received KIDNEY BIOPSY Clinical History Nephritis Intraoperative Consult Diagnosis Left kidney: Few glomeruli seen, as per Dr. Baltazar on 06/20/16 and 11:05 AM. Final Diagnosis Received from [facility] ([id number]) "DIAGNOSIS: RENAL BIOPSY: 1. DIFFUSE ENDOCAPILLARY PROLIFERATIVE GLOMERULONEPHRITIS WITH SMALL ISOLATED CELLULAR CRESCENTS AND MONOCLONAL IgG3-KAPPA STAINING (SEE COMMENT) 2. TUBULAR ATROPHY AND INTERSTITIAL FIBROSIS, MILD, WITH FOCAL TUBULOINTERSTITIAL INFLAMMATION AND FOCAL ACUTE TUBULAR INJURY. 3. ARTERIOSCLEROSIS, MODERATE, AND ARTERIOLOSCLEROSIS, MILD. Comment: The immunofluorescence findings of granular segmental to global mesangial and glomerular capillary wall staining for IgG3 (2+), C3 (2+), C1 (1+), and Concepcion (2+) with negative staining for lambda, IgG1, IgG2, and IgG4 support a monoclonal IgG1-kappa glomerulonephritis. By light microscopy, the sample shows diffuse endocapillary proliferative glomerulonephritis and isolated small cellular crescents. Taken together, the differential diagnosis includes proliferative glomerulonephritis monoclonal IgG deposits (PGNMID) versus type 1 cryoglobulinemia associated GN. Correlation with cryoglobulin testing, SPEP, UPEP and free light chains is recommended. While this entity is believed to be related to dysproteinemia, most often, the hematologic studies are negative because of the small clone and the strong nephritic effects of the IgG3. Electron microscopy is pending and may be contributory. ELECTRON MICROSCOPY INTERPRETATION Two (2) glomeruli are sampled in block A. The glomeruli displays minimal mesangial cellularity. The mesangium globally contains small to medium-sized electron dense deposits. The glomerular capillary lumina are largely occluded by prominent endocapillary proliferative lesions, composed of mononuclear leukocytes, enlarged endothelial cells and scattered granulocytes. Some of the mononuclear cells appear to contain electron densities. The glomerular basement membranes appear largely of normal thickness and contain global subendothelial deposits without definitive substructure. Foot process effacement involves ~25% of the glomerular capillary surface area. Proximal tubules exhibit nonspecific changes. Blood vessels are not ultrastructurally pictured. RESULTS RENAL BIOPSY WITH: A. ELECTRON DENSE DEPOSITS. -MESANGIAL, GLOBAL, 2+. -SUBENDOTHELIAL, GLOBAL, 2+. -SUBEPITHELIAL, SCATTERED, 1+ B. FOOT PROCESS EFFACEMENT, FOCAL. -CONSISTENT WITH: 1. DIFFUSE ENDOCAPILLARY PROLIFERATIVE GLOMERULONEPHRITIS WITH SMALL ISOLATED CELLULAR CRESCENTS AND MONOCLONAL IgG3-KAPPA STAINING. 2. TUBULAR ATROPHY AND INTERSTITIAL FIBROSIS, MILD, WITH FOCAL TUBULOINTERSTITIAL INFLAMMATION AND FOCAL ACUTE TUBULAR INJURY. 3. ARTERIOSCLEROSIS, MODERATE, AND ARTERIOLOSCLEROSIS, MILD." Electronically reviewed and signed on 07/02/16 by Derek Peguero MD Electronically Signed Ashkan Butler M.D. Gross Description Received in saline labeled "renal biopsy," are 8 fragments of gee soft tissue ranging from 0.4-1.5 cm in length and averaging 0.1 cm in diameter. The specimens are divided, placed into 10% buffered formalin, Gavin fixative and glutaraldehyde. The specimen is sent to [facility] studies. [facility]
== END 2016-06-22 15:51 | disposition home health service (06) | DRG 699 ==
LOC: JER 10:32 → JERBED 14:34 → J4S 19:36
PROVIDERS: ADMIT Internal Medicine; ATTEND Internal Medicine
PROC: 0TB13ZX Excision of Left Kidney, Percutaneous Approach, Diagnostic (ICD-10-PCS; principal; 2016-06-20)
DX: N05.8 Unspecified nephritic syndrome with other morphologic changes (principal); N39.0 Urinary tract infection, site not specified; E87.2 Acidosis; I47.1 Supraventricular tachycardia; N17.9 Acute kidney failure, unspecified; E03.9 Hypothyroidism, unspecified; E78.5 Hyperlipidemia, unspecified; E87.5 Hyperkalemia; D64.9 Anemia, unspecified; R80.8 Other proteinuria; R59.0 Localized enlarged lymph nodes; I10 Essential (primary) hypertension; R05 Cough; E83.39 Other disorders of phosphorus metabolism; I49.9 Cardiac arrhythmia, unspecified; R63.5 Abnormal weight gain; Z68.36 Body mass index [BMI] 36.0-36.9, adult
CPT/HCPCS: 36415; 50200; 71010-TC; 71020-TC; 71250-TC; 76098-TC; 76775-TC; 76942-TC; 76998-TC; 80048; 80053; 80074; 81003; 81015; 82436; 82550; 82570; 82728; 83520; 83540; 83550; 83735; 83880; 84100; 84133; 84155; 84156; 84165; 84300; 84484; 84540; 85025; 85027; 85610; 86038; 86063; 86160; 86162; 86256; 86593; 86850; 86900; 86901; 87086; 87205; 87389; 87899; 88329; 90670; 93005; 93010; 93306-TC; 94010; 99282-25; J1644

== ENCOUNTER 2022-05-31 05:26 | Day surgery (SDC) | payer OTHER, BC ==
[2022-05-30 10:21] VITALS: BMI 31.2
[2022-05-31 11:00] VITALS: TEMP 98.2
[2022-05-31 12:01] VITALS: BP 125/45; PULSE 59; RESP 18
== END 2022-05-31 11:45 | disposition home or self-care (01) ==
LOC: JASU-ENDO 05:26
PROVIDERS: ATTEND Internal Medicine Gastroenterology
PROC: 0DBL8ZX Excision of Transverse Colon, Via Natural or Artificial Opening Endoscopic, Diagnostic (ICD-10-PCS; 2022-05-31)
PROC: 0DBK8ZX Excision of Ascending Colon, Via Natural or Artificial Opening Endoscopic, Diagnostic (ICD-10-PCS; principal; 2022-05-31 10:00)
DX: Z12.11 Encounter for screening for malignant neoplasm of colon (principal); D12.2 Benign neoplasm of ascending colon; D12.3 Benign neoplasm of transverse colon; K57.30 Diverticulosis of large intestine without perforation or abscess without bleeding; Z80.0 Family history of malignant neoplasm of digestive organs